=== PATIENT | female | born 1970 | race Caucasian/White ===

== ENCOUNTER 2019-07-23 12:29 | Emergency (ER) | payer BC, SELFPAY ==
[2019-07-23 12:30] VITALS: BP 134/87; PULSE 89; RESP 17; TEMP 36.6; O2SAT 97; BMI 31.6
--- NOTE | 2019-07-23 12:45 | EKG12_ITS ---
Test Reason : DIZZINESS Blood Pressure : / mmHG Vent. Rate : 076 BPM Atrial Rate : 076 BPM P-R Int : 148 ms QRS Dur : 082 ms QT Int : 386 ms P-R-T Axes : 047 020 056 degrees QTc Int : 434 ms Normal sinus rhythm Normal ECG Confirmed by MICHELET PERALTA ([id number]), newspaper photo editor BLAYNE FRIAS ([id number]) on 07/29/2019 2:25:03 PM Referred By: JORDYN Confirmed By:MICHELET PERALTA
--- NOTE | 2019-07-23 12:45 | CT_ITS ---
STUDY: CT BRAIN WITHOUT CONTRAST REASON FOR EXAM: Female, 49 years old. Vertigo. RADIATION DOSAGE (If Supplied By Facility): CTDIvol = ( 44.99 ) mGy, DLP = ( 796.11 ) mGycm TECHNIQUE: Transaxial CT imaging of the brain was performed without administration of intravenous contrast material. Individualized dose optimization techniques were used for this CT. COMPARISON: No relevant priors. FINDINGS: Normal soft tissue structures. Normal calvarium. Normal size ventricles and extra-axial spaces for the patient's age. Normal white matter tracts of the cerebral hemispheres. Normal basal ganglia and thalami. Normal brainstem. Normal cerebellum. There is no intracranial hemorrhage. There are no findings of an acute ischemic infarction. Normal visualized paranasal sinuses. CT/Brain/Head without Contrast IMPRESSION: Normal unenhanced CT scan of the brain. Electronically Signed: Anthony Ruiz, at 13:40 EDT , Service support ,
--- NOTE | 2019-07-23 13:15 | RAD_ITS ---
STUDY: X-RAY CHEST REASON FOR EXAM: Female, 49 years old. Vertigo. TECHNIQUE: Single AP portable view of the chest. COMPARISON: None. FINDINGS: EKG electrodes are seen. The lungs are clear and expanded. Scattered calcified granulomas. There is no demonstrated pleural abnormality. Normal size heart. Normal mediastinum and josh. Normal visualized pulmonary arteries. Normal visualized aortic arch and descending thoracic aorta. Normal visualized thoracic spine. Normal visualized ribs, clavicles, and shoulders. There is no demonstrated abnormality of the visualized soft tissue structures of the upper abdomen. RAD/Chest 1 View IMPRESSION: Normal x-ray examination of the chest. Electronically Signed: Anthony Ruiz, at 13:39 EDT , Service support ,
[2019-07-23 13:18] LABS: Absolute Lymphocyte Count 2.07 X10^3/uL (0.83-4.51); Absolute Neutrophil Count 4.1 X10^3/uL (2.0-7.7); Basophil# 0.04 X10^3/uL; Basophil% 0.6 % (0-1); Eosinophil# 0.14 X10^3/uL; Eosinophils% 2.1 % (0-5); Hematocrit 38.4 % (37-47); Hemoglobin 12.4 g/dL (12.0-15.0); Lymphocyte # 2.07 X10^3/ul (4.0); Lymphocyte % 31.3 % (19-41); Mean Corp Hgb Conc 32.3 g/dL (32-36); Mean Corpuscular Hgb 27.9 pg (27.0-32.0); Mean Corpuscular Volume 86.5 fL (81-99); Mean Platelet Vol. 10.3 fl (6.2-12.0); Monocyte# 0.31 X10^3/uL; Monocyte% 4.7 % (0-10); NRBC Flagged by Analyzer 0 % (0-5); Neutrophil # 4.05 X10^3/uL (2.7-7.7); Neutrophil % 61.1 % (47-70); Platelet Count 238 K/mm3 (150-450); RBC Distribution Width CV 13.5 % (11.6-14.6); RBC Distribution Width SD 42.7 fl (35.1-43.9); Red Blood Count 4.44 M/mm3 (4.2-5.4); White Blood Count 6.6 K/mm3 (4.4-11.0)
--- NOTE | 2019-07-23 13:21 | NURSING ---
PER UENICE, LAB, CHEMISTRIES HEMOLIZED
--- NOTE | 2019-07-23 13:25 | ED.RN ---
Verbal orders received from Dr Fermin to cancel the NIH, dysphagia and finger stick glucose.
[2019-07-23] MEDS: LORazepam 2 MG/ML Syringe 0.5 MG IV (13:29)
[2019-07-23 13:30] LABS: Anion Gap 9 (5-15); BUN 10 mg/dL (7-18); BUN/Creat Ratio 15.1 RATIO (10-20); Calcium,Total 8.7 mg/dL (8.5-10.1); Chloride 105 mmol/L (98-107); Creatinine, Serum 0.66 mg/dL (0.55-1.02); EST Glomerular Filtration Rate 100 mL/min (>60); Est Glom Filt Rate - Afr Amer 121 mL/min (>60); Estimated Creatinine Clearance 83.42 ml/min; Glucose 98 mg/dL (74-106); Potassium 3.9 mmol/L (3.5-5.1); Sodium Level 139 mmol/L (136-145)
--- NOTE | 2019-07-23 13:52 | NURSING ---
PER GUDELIA, IN LAB, BLUE WAS HEMOLIZED
--- NOTE | 2019-07-23 13:58 | CT_ITS ---
STUDY: CTA HEAD AND NECK WITH CONTRAST REASON FOR EXAM: Female, 49 years old. Dizziness. RADIATION DOSAGE (If Supplied By Facility): CTDIvol = ( 19.88 ) mGy, DLP = ( 675.17 ) mGycm TECHNIQUE: CT angiography was performed with a multi-detector CT scanner. Data acquisition was obtained from the skull base through the vertex following intravenous administration of 100 IV Isovue 370. MIP images were reconstructed from the axial data set. Post-processing of the angiographic images was performed, with multiplanar reformation and 3D reconstruction. Individualized dose optimization techniques were used for this CT. COMPARISON: No relevant priors. FINDINGS: Normal bilateral petrous carotid arteries. Normal right cavernous carotid artery with a normal supraclinoid bifurcation. Normal left cavernous carotid artery with a normal supraclinoid bifurcation. Normal right A1 segments of the anterior cerebral artery. Normal left A1 segments of the anterior cerebral artery. Normal intact anterior communicating artery (ACOM). Normal bilateral A2 segments of the anterior cerebral arteries. Normal right M1 and M2 segments of the middle cerebral arteries, with a normal M1 bifurcation. Normal left M1 and M2 segments of the middle cerebral arteries, with a normal M1 bifurcation. Normal right posterior communicating artery (PCOM). Normal left posterior communicating artery (PCOM). Normal bilateral vertebral arteries. Normal basilar artery with a normal basilar bifurcation. The visualized bilateral superior cerebellar (SCA) arteries are normal. Normal bilateral P1, P2 and visualized P3 segments of the posterior cerebral arteries. There is no demonstrated aneurysm of the [place]. There is no demonstrated abnormality of the visualized brain. AORTIC ARCH: Normal visualized aortic arch. Normal origins of the brachiocephalic, left common carotid, and left subclavian arteries. RIGHT CAROTID ARTERIES: Normal right common carotid artery (CCA). Normal right common carotid bulb. Normal origin of the right internal carotid (ICA) artery without a hemodynamically significant stenosis. Normal visualized cervical portion of the right internal carotid artery. Normal origin of the right external carotid artery (ECA). LEFT CAROTID ARTERIES: Normal left common carotid artery (CCA). Normal left common carotid bulb. Normal origin of the left internal carotid (ICA) artery without a hemodynamically significant stenosis. Normal visualized cervical portion of the left internal carotid artery. Normal origin of the left external carotid artery (ECA). VERTEBRAL ARTERIES: Normal bilateral vertebral arteries. CT/CTA Head AND Neck W/ Contrast IMPRESSION: Normal CTA Head and neck with contrast. Electronically Signed: Anthony Ruiz, at 15:33 EDT , Service support ,
[2019-07-23] MEDS: proCHLORPERazine 10 MG/2 ML Vial IV (14:15)
[2019-07-23] MEDS: DiphenhydrAMINE 50 MG/ML Syringe 25 MG IV (14:15)
[2019-07-23 14:29] VITALS: BP 122/93; PULSE 79; RESP 18; O2SAT 96
[2019-07-23 14:34] LABS: Prothrombin Time (Protime)PT. 12.8 SECONDS (11.7-14.9)
[2019-07-23 14:35] LABS: Partial Thromboplast Time 29.7 Seconds (24.1-36.2)
--- NOTE | 2019-07-23 15:49 | ED.VISSUMM ---
- ER Visit Summary Date of Service: 07/23/19 Chief Complaint: Dizziness History of Present Illness: The patient is a 49 F with dizziness that started suddenly today around 8 AM at work. Nothing seems to provoke it. Nothing seemed to make it worse. Better with laying down and closing her eyes. Associated with some nausea and a frontal headache. She was also diaphoretic. No history of this. History of hyperlipidemia. Denies smoking. Denies any other neurologic symptoms. Denies trauma. Physical Examination: Afebrile and vital signs unremarkable. HEENT exam unremarkable. NIH stroke scale is 0. Heart regular. Lungs clear. Skin appears normal. Test Results: EKG sinus rhythm rate of 76. Labs normal. Chest x-ray and CT brain normal. Emergency Department Course and Treatment: Patient has symptoms of peripheral vertigo. Given her headache, I did obtain imaging and labs. These were unremarkable. She was treated with Ativan while awaiting results. On reevaluation, she had no improvement. CTA of the head and neck was performed. This was negative. She was treated with Compazine and Benadryl while awaiting those results. On initial reevaluation, her symptoms have resolved. She is resting comfortably. No new or worsening issues. I believe she is appropriate for outpatient care. I advised that we have not completely ruled out stroke. She was educated about stroke and will return if any issues arise. She requested discharge after this discussion. Treatment Plan: As above Disposition: Discharge Impression: 1. Vertigo This note was generated with [employer] dictation software. It may contain incorrect words, spelling, and punctuation that were not noted in review of the chart prior to signing ED Disposition - Plan for ED Patient: Referrals: Rebekah Pastrana MD [Primary Care Provider] -
--- NOTE | 2019-07-23 15:51 | ED.DEP ---
ED Disposition - Plan for ED Patient: Instructions: VERTIGO, Unspecified Prescriptions: Meclizine HCl [Antivert] 25 mg PO 4X/DAY PRN PRN #20 tab PRN Reason: Dizziness Prescription Printed Referrals: Rebekah Pastrana MD [Primary Care Provider] -
[2019-07-23 16:00] VITALS: BP 122/89; PULSE 84; RESP 16; O2SAT 98
[2019-07-23 16:01] VITALS: BP 122/89; PULSE 84; RESP 16; O2SAT 98
== END 2019-07-23 16:05 | disposition home or self-care (01) ==
LOC: ED 13:01
PROVIDERS: Emergency Provider Emergency Medicine; Family Provider Internal Medicine; PCP Internal Medicine
DX: R42 Dizziness and giddiness (principal); E78.5 Hyperlipidemia, unspecified; Z79.899 Other long term (current) drug therapy
CPT/HCPCS: 70450; 70496; 70498; 71045; 80048; 84484; 85025; 85610; 85730; 93005; 96374; 96375; 99285; Q9967; A4216

== ENCOUNTER 2020-03-18 12:50 | Emergency (ER) | payer OTHER, SELFPAY ==
[2020-03-18 12:51] VITALS: BP 128/79; PULSE 111; RESP 17; TEMP 36.5; O2SAT 96; BMI 31.6
[2020-03-18 13:11] VITALS: BP 136/83; PULSE 99; RESP 15; O2SAT 95
[2020-03-18] MEDS: 0.9% Normal Saline 1,000 ML 1000 ML IV (13:16)
[2020-03-18 13:22] LABS: Absolute Lymphocyte Count 2.28 X10^3/uL (0.83-4.51); Absolute Neutrophil Count 3.9 X10^3/uL (2.0-7.7); Basophil# 0.03 X10^3/uL; Basophil% 0.4 % (0-1); Eosinophil# 0.13 X10^3/uL; Eosinophils% 1.9 % (0-5); Hematocrit 38.7 % (37-47); Hemoglobin 12.6 g/dL (12.0-15.0); Lymphocyte # 2.28 X10^3/ul (4.0); Lymphocyte % 34.1 % (19-41); Mean Corp Hgb Conc 32.6 g/dL (32-36); Mean Corpuscular Hgb 28.2 pg (27.0-32.0); Mean Corpuscular Volume 86.6 fL (81-99); Mean Platelet Vol. 10.3 fl (6.2-12.0); Monocyte# 0.29 X10^3/uL; Monocyte% 4.3 % (0-10); NRBC Flagged by Analyzer 0 % (0-5); Neutrophil # 3.93 X10^3/uL (2.7-7.7); Neutrophil % 58.9 % (47-70); Platelet Count 247 K/mm3 (150-450); RBC Distribution Width CV 13.2 % (11.6-14.6); RBC Distribution Width SD 41.8 fl (35.1-43.9); Red Blood Count 4.47 M/mm3 (4.2-5.4); White Blood Count 6.7 K/mm3 (4.4-11.0)
[2020-03-18 13:30] VITALS: BP 116/71; BP 122/85; BP 123/82; PULSE 86; PULSE 93; PULSE 96; RESP 16; O2SAT 98
[2020-03-18 13:31] LABS: Prothrombin Time (Protime)PT. 12.5 SECONDS (11.7-14.9)
[2020-03-18 13:32] LABS: Partial Thromboplast Time 29.5 Seconds (24.1-36.2)
[2020-03-18 13:37] LABS: Anion Gap 12 (5-15); BUN 13 mg/dL (7-18); BUN/Creat Ratio 14.3 RATIO (10-20); Calcium,Total 8.7 mg/dL (8.5-10.1); Chloride 103 mmol/L (98-107); Creatinine, Serum 0.91 mg/dL (0.55-1.02); EST Glomerular Filtration Rate 69 mL/min (>60); Est Glom Filt Rate - Afr Amer 84 mL/min (>60); Glucose 118 mg/dL (74-106); Potassium 3.4 mmol/L (3.5-5.1); Sodium Level 138 mmol/L (136-145)
[2020-03-18] MEDS: Ondansetron ODT 4 MG Tablet PO (13:41)
--- NOTE | 2020-03-18 14:45 | CT_ITS ---
STUDY: CT ABDOMEN AND PELVIS WITH CONTRAST REASON FOR EXAM: Female, 49 years old. DIVERTICULITIS AND GI BLEED. PRIOR HYSTERECTOMY, TUBIAL LIGATION AND CHOLECYSTECTOMY RADIATION DOSAGE (If Supplied By Facility): CTDIvol = ( 14.37 ) mGy, DLP = ( 809.51 ) mGycm TECHNIQUE: Transaxial images were obtained from the dome of the diaphragm to the symphysis pubis without oral contrast. Oral and amp; IV Gastrografin and amp; 100mL Isovue-300 was administered. Sagittal and coronal images were reconstructed. Individualized dose optimization techniques were used for this CT. COMPARISON: None. FINDINGS: Several tiny calcified benign granulomas are present in the bilateral lower lobes. Normal liver. No intrahepatic biliary duct dilatation or liver mass. There is non-visualization of the gallbladder, compatible with a prior cholecystectomy. Normal spleen. Normal pancreas. Normal bilateral adrenal glands. Normal right kidney. Normal left kidney. Small simple cysts of the left kidney noted and require no further evaluation. No hydronephrosis or renal masses. No large stones. Normal visualized stomach. Normal small intestine. Normal colon. No bowel dilatation or obstruction. No free air or free fluid. The appendix is visualized and appears normal. Normal abdominal aorta. Normal inferior vena cava. Normal retroperitoneum. Normal urinary bladder. There is absence of the uterus consistent with a prior hysterectomy. Normal abdominal wall. There are diffuse degenerative changes of the visualized lumbar spine. Benign fatty hemangioma seen in the lower thoracic vertebra. CT/Abdomen/Pelvis WITH Contrast IMPRESSION: No demonstrated acute or significant process of the abdomen and pelvis. Electronically Signed: Carlo Giraldo MD at 17:09 EDT , Service support ,
[2020-03-18 15:00] VITALS: BP 119/77; PULSE 93; RESP 20; O2SAT 100
--- NOTE | 2020-03-18 16:25 | ED.DCSUM_ITS ---
- ER Visit Summary Date of Service: 03/18/20 Chief Complaint: Blood in stool History of Present Illness: The patient is a [address] Pastrana and has had a colonoscopy by Dr. Ham in the past. She reports that at noon today she went and had a bowel movement that was formed and there was some bright red blood. Since that time she has had 2 loose stools with bright red blood. She first that she is cramping suprapubic pain was 5 to 10 hours and is 2 out of 10 currently. She reports that it is worsened by nothing. Is relieved by having a bowel movement. She had nausea without vomiting. She denies any dysuria or frequency. Patient denies sick contacts. Has not been camping out of the country. No possible bad food exposure. Does not drink well water. No recent antibiotic use. Patient reports he is never had anything like this before. No family history of Crohn's or ulcerative colitis. No fever or chills. Physical Examination: Vitals: Stable. Afebrile. General: Well-nourished and well-developed. Head: Normocephalic atraumatic. Neck: Supple, no lymphadenopathy. No JVD. Nontender. Cardiovascular: Regular rate and rhythm. No murmurs. Respiratory: No respiratory distress. Clear to auscultation bilaterally. Abdominal: Soft, nontender, nondistended, normal bowel sounds. No guarding, rebound, or peritoneal signs. Rectal: External skin tags with a small anal fissure at 6:00. There is no active bleeding. There are no external hemorrhoids. Back: Nontender. Extremities: Nontender, no edema. Skin: Normal color, no rash. Neurologic: Alert and oriented ?3. Cranial nerves II through XII are intact. Normal strength and sensation. Psych: Normal affect. Test Results: CBC is normal. Chem-7 shows potassium 3.4 glucose 118. Coags are normal. Clinical Impression(s) from Imaging Studies Abdomen/Pelvis CT 03/18/20 14:45 IMPRESSION: No demonstrated acute or significant process of the abdomen and pelvis. Electronically Signed: Carlo Giraldo MD at 17:09 EDT , Service support , Emergency Department Course and Treatment: Patient has had 2 bowel movements with bright red blood while here. She was discussed with Dr. Trey Lucas who asked that a CT with p.o. and IV contrast be obtained. Treatment Plan: Clinically the patient is stable. She feels well and would like to go home. I spoke with Dr. Trey Lucas again who has reviewed the CT and does not see a cause for the bleeding. He asked that the patient be made n.p.o. after midnight and call the office in the morning at 7. States that he will see her likely at 8:00 in the morning in case that procedure needs to be performed. I discussed this with the patient and she is happy with this plan. Disposition: To home in improved and stable condition. Impression: 1. Stable lower GI bleed. This note was generated with [employer] dictation software. It may contain incorrect words, spelling, and punctuation that were not noted in review of the chart prior to signing ED Disposition - Plan for ED Patient: Instructions: ED Hematochezia Stable Referrals: Rebekah Pastrana MD [Primary Care Provider] - Trey Lucas MD [STAFF PHYSICIAN] - 03/19/20 Additional Instructions: Dr. Trey Lucas asked that you call at 7 AM tomorrow to make an appointment to be seen as early in the morning as you can. He does not want you to eat or drink anything after midnight in case a procedure is needed.
== END 2020-03-18 17:33 | disposition home or self-care (01) ==
LOC: ED 13:33
PROVIDERS: Emergency Provider Emergency Medicine; PCP Internal Medicine
DX: K92.2 Gastrointestinal hemorrhage, unspecified (principal)
CPT/HCPCS: 74177; 80048; 85025; 85610; 85730; 96361; 96374; 99285; J7030; Q9967; A4216

== ENCOUNTER 2020-03-24 07:41 | Day surgery (SDC) | payer OTHER, SELFPAY ==
[2020-03-19 10:25] VITALS: BMI 31.5
--- NOTE | 2020-03-19 11:03 | HP_ITS ---
Intake Vital Signs 03/19/20 Height 5 ft 3 in 03/19/20 Weight: 178 lb 03/19/20 BP 110/77 03/19/20 Blood Pressure Location Rt brachial 03/19/20 Position Sitting 03/19/20 Respiration 18 03/19/20 Pulse 82 03/19/20 Pulse Source Monitor 03/19/20 Temp 97.9 F 03/19/20 Temp Source Oral 03/19/20 Pulse Oximetry (%) 98 03/19/20 Oxygen Delivery Method room air 03/19/20 BMI 31.6 Intake Visit Reasons: rectal bleeding Allergies Penicillins Allergy (Verified 03/19/20 10:27) Hives Medications Ergocalciferol [Vitamin D] 50,000 unit PO ALBERT 02/11/14 [History Confirmed 03/19/20] Acetaminophen [Tylenol Extra Strength] 1,000 mg PO Q4H PRN PRN 07/23/19 [History Confirmed 03/19/20] Meclizine HCl [Antivert] 25 mg PO 4X/DAY PRN PRN #20 tab 07/23/19 [Rx Confirmed 03/19/20] Rosuvastatin Calcium 20 mg PO QHS 07/23/19 [History Confirmed 03/19/20] PFSH Medical History (Updated 03/19/20 @ 11:[address] Trey Lucas MD) Collagenous colitis (Acute) Anal fissure (Acute) Rectal hemorrhage (Acute) Acid reflux (Acute) Diarrhea (Acute) Nausea (Acute) Rectal bleeding (Acute) Sleep apnea (Acute) Surgical History (Updated 03/19/20 @ 10:24 by Kasandra Peña) History of hysterectomy (Acute) History of laparoscopic cholecystectomy (Acute) Family History (Updated 03/19/20 @ 10:25 by Kasandra Peña) Father Cancer Pancreatic cancer Mother Diabetes CVA (cerebral vascular accident) Social History (Updated 03/19/20 @ 11:[address] Trey Lucas MD) Smoking Status: Never smoker HPI HPI HPI: TRUNG PEÑA, is a 49 F who presents to the office today for HPI HPI Surgical H&P: Yes HPI: TRUNG PEÑA, is a 49 F who presents to the office today for surgical consultation regarding rectal bleeding. I was contacted by from the emergency room last night. The patient had presented with bright red rectal bleeding. She had had several episodes but by the time her ER evaluation had completed her rectal bleeding was slowing. She has had a known chronic anal fissure. This did not seem to be the site of her rectal bleeding and Dr. Leon referred the patient for surgical consultation and I will send a copy of my recommendations back. The patient's primary care physician is Dr. Pastrana. The patient most recent colonoscopy was by Dr. Maykel Barajas 2006. Random colonic biopsies did demonstrate collagenous colitis. The patient has not been on any medications. Over the years she has had postprandial urgent bowel movements particularly after eating out. She does not really describe liquidy stool except she will have a urgent soft stool which then can evolve into more of a diarrhea. Over the years she does not describe bright red blood per rectum or melena. The bright red rectal bleeding was a recent phenomena occurring yesterday. There is no family history of colon polyps or colon cancer. Her white blood cell count was 6.7 with a hemoglobin 12.6 hematocrit 38.7 platelet count 247,000. BUN is [address] scan of the abdomen pelvis was obtained at my request. This was performed looking for possible acute diverticulitis. No acute changes of the colon were identified or of the abdomen. The patient states that today she feels improved. She has not had any rectal bleeding or anal pain today [facility] [address] [place] [address] Abdomen/Pelvis WITH Contrast MR#: [id number] Name: TRUNG PEÑA [facility] #:[id number] : 1970F 49 From: Carlo Giraldo MD PCP:Rebekah Pastrana MD Status:[facility] ER Study:Abdomen/Pelvis WITH Contrast Date of Exam:03/18/20 Exam#[id number] Ordering Dr: Jerrell Leon MD STUDY: CT ABDOMEN AND PELVIS WITH CONTRAST REASON FOR EXAM: Female, 49 years old. DIVERTICULITIS AND GI BLEED. PRIOR HYSTERECTOMY, TUBIAL LIGATION AND CHOLECYSTECTOMY RADIATION DOSAGE (If Supplied By Facility): CTDIvol = ( 14.37 ) mGy, DLP = ( 809.51 ) mGycm TECHNIQUE: Transaxial images were obtained from the dome of the diaphragm to the symphysis pubis without oral contrast. Oral and amp; IV Gastrografin and amp; 100mL Isovue-300 was administered. Sagittal and coronal images were reconstructed. Individualized dose optimization techniques were used for this CT. COMPARISON: None. FINDINGS: Several tiny calcified benign granulomas are present in the bilateral lower lobes. Normal liver. No intrahepatic biliary duct dilatation or liver mass. There is non-visualization of the gallbladder, compatible with a prior cholecystectomy. Normal spleen. Normal pancreas. Normal bilateral adrenal glands. Normal right kidney. Normal left kidney. Small simple cysts of the left kidney noted and require no further evaluation. No hydronephrosis or renal masses. No large stones. Normal visualized stomach. Normal small intestine. Normal colon. No bowel dilatation or obstruction. No free air or free fluid. The appendix is visualized and appears normal. Normal abdominal aorta. Normal inferior vena cava. Normal retroperitoneum. Normal urinary bladder. There is absence of the uterus consistent with a prior hysterectomy. Normal abdominal wall. There are diffuse degenerative changes of the visualized lumbar spine. Benign fatty hemangioma seen in the lower thoracic vertebra. CT/Abdomen/Pelvis WITH Contrast IMPRESSION: No demonstrated acute or significant process of the abdomen and pelvis. Electronically Signed: Carlo Giraldo MD at 17:09 EDT , Service support , CC: Rebekah Pastrana MD; Sanjiv Leon MD ~ Teacher [employer]: Signed Exam Const General: cooperative, healthy appearing, comfortable, no acute distress Nutritional Appearance: obese Orientation: alert, awake HENMT Head: normal to inspection Eyes General: appearance normal, both eyes and all related structures Neck Neck: normal visual inspection Resp Effort & Inspection: normal respiratory effort Auscultation: clear to auscultation bilaterally Cardio Rate: regular rate Rhythm: regular rhythm GI Inspection: obesity Palpation: soft, no hepatosplenomegaly Skin General: no rashes or lesions noted Neuro Cognition: normal cognition Extrem General: no calf tenderness Psych Affect: normal affect Assessment & Plan Problems 1. Rectal hemorrhage K62.5 2. Anal fissure K60.2 3. Collagenous colitis K52.831 Plan I recommended the patient a colonoscopy with possible biopsy or polypectomy as indicated. Very careful inspection for potential etiologies of rectal bleeding will be pursued. Careful inspection of the anal fissure. I anticipate random colonic biopsies to evaluate regarding active collagenous colitis. The patient has not been on medication she may require medical treatment. She has had an opportunity to ask and have questions answered. We will schedule and expedite her care. I appreciate the opportunity of assisting with her surgical management. Cc: Dr. Sanjiv Leon and Dr.Chitra Victoriano Lucas M.D., F.A.C.S. Coding Level of Care Code 71381 Diagnoses Rectal hemorrhage K62.5 Anal fissure K60.2 Collagenous colitis K52.831 03/19/20 1112 <Electronically signed by Trey soto MD> Date _ Trey Lucas MD
[2020-03-24 08:09] VITALS: BP 116/78; PULSE 85; RESP 16; TEMP 36.6; O2SAT 95; BMI 33.5
[2020-03-24] MEDS: Lactated Ringers 1,000 ML 100 ML IV (08:13)
--- NOTE | 2020-03-24 08:29 | PCM.HP.BLA ---
Problem List (1) Rectal hemorrhage Status: Acute History and Physical Date of Admission: 03/24/20 Intake Visit Reasons: rectal bleeding Allergies Penicillins Allergy (Verified 03/19/20 10:27) Hives Medications Ergocalciferol [Vitamin D] 50,000 unit PO ALBERT 02/11/14 [History Confirmed 03/19/20] Acetaminophen [Tylenol Extra Strength] 1,000 mg PO Q4H PRN PRN 07/23/19 [History Confirmed 03/19/20] Meclizine HCl [Antivert] 25 mg PO 4X/DAY PRN PRN #20 tab 07/23/19 [Rx Confirmed 03/19/20] Rosuvastatin Calcium 20 mg PO QHS 07/23/19 [History Confirmed 03/19/20] PFS Medical History (Updated 03/19/20 @ 11:[address] Trey Lucas MD) Collagenous colitis (Acute) Anal fissure (Acute) Rectal hemorrhage (Acute) Acid reflux (Acute) Diarrhea (Acute) Nausea (Acute) Rectal bleeding (Acute) Sleep apnea (Acute) Surgical History (Updated 03/19/20 @ 10:24 by Kasandra Peña) History of hysterectomy (Acute) History of laparoscopic cholecystectomy (Acute) Family History (Updated 03/19/20 @ 10:25 by Kasandra Peña) Father Cancer Pancreatic cancer Mother Diabetes CVA (cerebral vascular accident) Social History (Updated 03/19/20 @ 11:[address] Trey Lucas MD) Smoking Status: Never smoker HPI HPI HPI: TRUNG PEÑA, is a 49 F who presents to the office today for HPI HPI Surgical H&P: Yes HPI: TRUNG PEÑA, is a 49 F who presents to the office today for surgical consultation regarding rectal bleeding. I was contacted by from the emergency room last night. The patient had presented with bright red rectal bleeding. She had had several episodes but by the time her ER evaluation had completed her rectal bleeding was slowing. She has had a known chronic anal fissure. This did not seem to be the site of her rectal bleeding and Dr. Leon referred the patient for surgical consultation and I will send a copy of my recommendations back. The patient's primary care physician is Dr. Pastrana. The patient most recent colonoscopy was by Dr. Maykel Barajas 2006. Random colonic biopsies did demonstrate collagenous colitis. The patient has not been on any medications. Over the years she has had postprandial urgent bowel movements particularly after eating out. She does not really describe liquidy stool except she will have a urgent soft stool which then can evolve into more of a diarrhea. Over the years she does not describe bright red blood per rectum or melena. The bright red rectal bleeding was a recent phenomena occurring yesterday. There is no family history of colon polyps or colon cancer. Her white blood cell count was 6.7 with a hemoglobin 12.6 hematocrit 38.7 platelet count 247,000. BUN is [address] scan of the abdomen pelvis was obtained at my request. This was performed looking for possible acute diverticulitis. No acute changes of the colon were identified or of the abdomen. The patient states that today she feels improved. She has not had any rectal bleeding or anal pain today [facility] Imaging Services [address] [place] [address] Abdomen/Pelvis WITH Contrast MR#: [id number] Name: TRUNG PEÑA [facility] #:[id number] : 1970F 49 From: Carlo Giraldo MD PCP:Rebekah Pastrana MD Status:[facility] ER Study:Abdomen/Pelvis WITH Contrast Date of Exam:03/18/20 Exam#[id number] Ordering Dr: Jerrell Leon MD STUDY: CT ABDOMEN AND PELVIS WITH CONTRAST REASON FOR EXAM: Female, 49 years old. DIVERTICULITIS AND GI BLEED. PRIOR HYSTERECTOMY, TUBIAL LIGATION AND CHOLECYSTECTOMY RADIATION DOSAGE (If Supplied By Facility): CTDIvol = ( 14.37 ) mGy, DLP = ( 809.51 ) mGycm TECHNIQUE: Transaxial images were obtained from the dome of the diaphragm to the symphysis pubis without oral contrast. Oral and amp; IV Gastrografin and amp; 100mL Isovue-300 was administered. Sagittal and coronal images were reconstructed. Individualized dose optimization techniques were used for this CT. COMPARISON: None. FINDINGS: Several tiny calcified benign granulomas are present in the bilateral lower lobes. Normal liver. No intrahepatic biliary duct dilatation or liver mass. There is non-visualization of the gallbladder, compatible with a prior cholecystectomy. Normal spleen. Normal pancreas. Normal bilateral adrenal glands. Normal right kidney. Normal left kidney. Small simple cysts of the left kidney noted and require no further evaluation. No hydronephrosis or renal masses. No large stones. Normal visualized stomach. Normal small intestine. Normal colon. No bowel dilatation or obstruction. No free air or free fluid. The appendix is visualized and appears normal. Normal abdominal aorta. Normal inferior vena cava. Normal retroperitoneum. Normal urinary bladder. There is absence of the uterus consistent with a prior hysterectomy. Normal abdominal wall. There are diffuse degenerative changes of the visualized lumbar spine. Benign fatty hemangioma seen in the lower thoracic vertebra. CT/Abdomen/Pelvis WITH Contrast IMPRESSION: No demonstrated acute or significant process of the abdomen and pelvis. Electronically Signed: Carlo Giraldo MD at 17:09 EDT , Service support , CC: Rebekah Pastrana MD; Sanjiv Leon MD ~ Cover Cutter: Signed Exam Const General: cooperative, healthy appearing, comfortable, no acute distress Nutritional Appearance: obese Orientation: alert, awake HENWA Head: normal to inspection Eyes General: appearance normal, both eyes and all related structures Neck Neck: normal visual inspection Resp Effort & Inspection: normal respiratory effort Auscultation: clear to auscultation bilaterally Cardio Rate: regular rate Rhythm: regular rhythm GI Inspection: obesity Palpation: soft, no hepatosplenomegaly Skin General: no rashes or lesions noted Neuro Cognition: normal cognition Extrem General: no calf tenderness Psych Affect: normal affect Assessment & Plan Problems 1. Rectal hemorrhage K62.5 2. Anal fissure K60.2 3. Collagenous colitis K52.831 Plan I recommended the patient a colonoscopy with possible biopsy or polypectomy as indicated. Very careful inspection for potential etiologies of rectal bleeding will be pursued. Careful inspection of the anal fissure. I anticipate random colonic biopsies to evaluate regarding active collagenous colitis. The patient has not been on medication she may require medical treatment. She has had an opportunity to ask and have questions answered. We will schedule and expedite her care. I appreciate the opportunity of assisting with her surgical management. Cc: Dr. Sanjiv Leon and Dr.Chitra Victoriano Lucas M.D., F.A.C.S. Coding Level of Care Code 94958 Diagnoses Rectal hemorrhage K62.5 Anal fissure K60.2 Collagenous colitis K52.831 03/19/20 1112 <Electronically signed by Trey Lucas MD> Date Trey Lucas MD I have re-examined the patient. There are no clinical changes since date of exam.
--- NOTE | 2020-03-24 09:10 | COLBX_PTH ---
PATIENT: TRUNG PEÑA LOC: [facility] U#:[id number] AGE/SX: 49/F ROOM: RE03/24/[address]: Dr. Trey Lucas MD : 1970 BED: DIS: 03/24/2020 SPEC #: [id number] RECD: 03/24/20 12:49 STATUS: [facility] #: [id number] CALLIE: 03/24/20 09:[address]: Trey Lucas DEPT: SURGICAL PATHOLOGY RECD BY: Jamaal Lucero ENTERED: 03/25/20 09:34 SP TYPE: COLON BX OTHR DR: Dr. Rebekah Pastrana MD Tissues: A - COLON BIOPSY B - Sigmoid colon biopsy C - Sigmoid colon biopsy Procedures: Surgery Specimen Level IV HEADER OPERATION: Colonoscopy (MAC) PRE-OP DIAGNOSIS: Rectal hemorrhage TISSUE SUBMITTED: A - Random colonic biopsy, B - Proximal sigmoid polyp biopsy, C - Mid sigmoid polyp biopsy MICROSCOPIC DIAGNOSIS A. Colon, random biopsy: No pathologic change. B. Proximal sigmoid colon polyp, biopsy: Tubular adenoma. C. Mid sigmoid colon polyp, biopsy: Tubular adenoma. AM:dennise 03/26/20 MICROSCOPIC DESCRIPTION Slides are reviewed. GROSS DESCRIPTION A - Received in fixative is one container labeled with the patient's name and designated random colon biopsy. The specimen consists of multiple irregular fragments of light cruz soft tissue that in aggregate measure 0.7 x 0.5 x 0.1 cm. The specimen is totally submitted in one cassette. B - Received in fixative is one container labeled with the patient's name and designated proximal sigmoid colon polyp. The specimen consists of one irregular fragment of light cruz soft tissue that measures 0.5 x 0.3 x 0.1 cm. The specimen is totally submitted in one cassette. C - Received in fixative is one container labeled with the patient's name and designated mid sigmoid colon polyp. The specimen consists of two irregular fragments of light cruz soft tissue that in aggregate measure 0.6 x 0.3 x 0.1 cm. The specimen is totally submitted in one cassette. / AM:dennise 03/25/20 TC:5 CPT: 82022 x3
[2020-03-24 09:40] VITALS: BP 112/88; BP 116/78; PULSE 81; RESP 16; TEMP 36.7; O2SAT 100
[2020-03-24 09:45] VITALS: BP 108/81; BP 116/78; PULSE 79; RESP 18; O2SAT 99
--- NOTE | 2020-03-24 09:47 | OP.CCLET_ITS ---
03/24/2020 Rebekah Pastrana [address] [id number] Re : Colonoscopy procedure for Sophie Dempseykins Dear Dr. Pastrana This procedure was performed on Tuesday, March 24, 2020. My impressions and recommendations are as follows: Impressions : - Non-thrombosed external hemorrhoids, non-thrombosed internal hemorrhoids and internal hemorrhoids that prolapse with straining, but require manual replacement into the anal canal (Grade III) found on digital rectal exam. - One 4 mm polyp in the proximal sigmoid colon, removed with a cold biopsy forceps. Resected and retrieved. - One 5 mm polyp in the mid sigmoid colon, removed with a cold biopsy forceps. Resected and retrieved. Biopsied. - Diverticulosis in the sigmoid colon. - The examination was otherwise normal. Recommendations : - Discharge patient to home. - Resume previous diet. - Continue present medications. - Repeat colonoscopy in 5 years for surveillance based on pathology results. - Telephone my office for pathology results in 1 week Consider virtual office appt. one week to discuss hemorrhoidectomy. Rectal bleeding likely secondary to internal hemorrhoids. My findings are described in the full procedure note, which is enclosed. If I can be of further assistance, please feel free to contact me at Doctor phone number(s): Work: . Sincerely, Trey Lucas MD 03/24/2020 9:46:53 AM This report has been signed electronically.
--- NOTE | 2020-03-24 09:47 | OP.COLON_ITS ---
Patient Name: Sophie Villegas Procedure Date: 03/24/2020 9:15 AM Date of : 1970 Age: 49 Procedure: Colonoscopy Indications: Rectal bleeding Providers: Trey Lucas MD Referring MD: Trey Lucas MD Medicines: See the Anesthesia note for documentation of the administered medications Patient Profile: Last Colonoscopy: 2006. Complications: No immediate complications. Procedure: Pre-Anesthesia Assessment: - Prior to the procedure, a History and Physical was performed, and patient medications and allergies were reviewed. The patient's tolerance of previous anesthesia was also reviewed. The risks and benefits of the procedure and the sedation options and risks were discussed with the patient. All questions were answered, and informed consent was obtained. Prior Anticoagulants: The patient has taken no previous anticoagulant or antiplatelet agents. ASA Grade Assessment: II - A patient with mild systemic disease. After reviewing the risks and benefits, the patient was deemed in satisfactory condition to undergo the procedure. After I obtained informed consent, the scope was passed under direct vision. Throughout the procedure, the patient's blood pressure, pulse, and oxygen saturations were monitored continuously. The pediatric colonoscope was introduced through the anus and advanced to the cecum, identified by appendiceal orifice and ileocecal valve. The colonoscopy was performed without difficulty. The patient tolerated the procedure well. The quality of the bowel preparation was good. The ileocecal valve and the appendiceal orifice were photographed. Scope In: 9:24:07 AM Scope Withdrawal Time 0 hours 7 minutes 39 seconds Scope Out: 9:36:21 AM Total Procedure Duration Time 0 hours 12 minutes 14 seconds Findings: The digital rectal exam findings include non-thrombosed external hemorrhoids, non-thrombosed internal hemorrhoids and internal hemorrhoids that prolapse with straining, but require manual replacement into the anal canal (Grade III). A 4 mm polyp was found in the proximal sigmoid colon. The polyp was sessile. The polyp was removed with a cold biopsy forceps. Resection and retrieval were complete. A 5 mm polyp was found in the mid sigmoid colon. The polyp was sessile. The polyp was removed with a cold biopsy forceps. Resection and retrieval were complete. Biopsies for histology were taken with a cold forceps from the entire colon for evaluation of microscopic colitis. A few diverticula were found in the sigmoid colon. The exam was otherwise without abnormality. Impression: - Non-thrombosed external hemorrhoids, non-thrombosed internal hemorrhoids and internal hemorrhoids that prolapse with straining, but require manual replacement into the anal canal (Grade III) found on digital rectal exam. - One 4 mm polyp in the proximal sigmoid colon, removed with a cold biopsy forceps. Resected and retrieved. - One 5 mm polyp in the mid sigmoid colon, removed with a cold biopsy forceps. Resected and retrieved. Biopsied. - Diverticulosis in the sigmoid colon. - The examination was otherwise normal. Recommendation: - Discharge patient to home. - Resume previous diet. - Continue present medications. - Repeat colonoscopy in 5 years for surveillance based on pathology results. - Telephone my office for pathology results in 1 week Consider virtual office appt. one week to discuss hemorrhoidectomy. Rectal bleeding likely secondary to internal hemorrhoids. Procedure Code(s): --- Professional --- 02289, Colonoscopy, flexible; with biopsy, single or multiple Diagnosis Code(s): --- Professional --- K64.2, Third degree hemorrhoids K64.4, Residual hemorrhoidal skin tags D12.5, Benign neoplasm of sigmoid colon K62.5, Hemorrhage of anus and rectum K57.30, Diverticulosis of large intestine without perforation or abscess without bleeding CPT copyright 2017 [employer]. All rights reserved. The codes documented in this report are preliminary and upon waste disposal attendant review may be revised to meet current compliance requirements. Trey Lucas MD 03/24/2020 9:46:53 AM This report has been signed electronically. Number of Addenda: 0 Note Initiated On: 03/24/2020 9:15 AM
[2020-03-24 09:50] VITALS: BP 116/78; BP 120/77; PULSE 79; RESP 18; O2SAT 100
[2020-03-24 09:56] VITALS: BP 113/80; BP 116/78; PULSE 76; RESP 18; TEMP 36.8; O2SAT 99
[2020-03-24 10:14] VITALS: BP 116/78
== END 2020-03-24 10:16 | disposition home or self-care (01) ==
LOC: EN 07:42 → AC 07:43
PROVIDERS: PCP Internal Medicine; Referring Provider Surgery; Visit Provider Surgery
PROC: 0DJD8ZZ Inspection of Lower Intestinal Tract, Via Natural or Artificial Opening Endoscopic (ICD-10-PCS; CPT 45378; principal; 2020-03-24 09:05)
DX: K62.5 Hemorrhage of anus and rectum (principal); K57.30 Diverticulosis of large intestine without perforation or abscess without bleeding; D12.5 Benign neoplasm of sigmoid colon; K64.2 Third degree hemorrhoids; K64.4 Residual hemorrhoidal skin tags; G47.30 Sleep apnea, unspecified; K21.9 Gastro-esophageal reflux disease without esophagitis; K60.1 Chronic anal fissure; K52.831 Collagenous colitis; Z79.899 Other long term (current) drug therapy
CPT/HCPCS: 45380; 88305; J7120

== ENCOUNTER 2020-04-10 06:32 | Day surgery (SDC) | payer OTHER, SELFPAY ==
--- NOTE | 2020-03-19 11:03 | HP_ITS ---
Intake Vital Signs 03/19/20 Height 5 ft 3 in 03/19/20 Weight: 178 lb 03/19/20 BP 110/77 03/19/20 Blood Pressure Location Rt brachial 03/19/20 Position Sitting 03/19/20 Respiration 18 03/19/20 Pulse 82 03/19/20 Pulse Source Monitor 03/19/20 Temp 97.9 F 03/19/20 Temp Source Oral 03/19/20 Pulse Oximetry (%) 98 03/19/20 Oxygen Delivery Method room air 03/19/20 BMI 31.6 Intake Visit Reasons: rectal bleeding Allergies Penicillins Allergy (Verified 03/19/20 10:27) Hives Medications Ergocalciferol [Vitamin D] 50,000 unit PO ALBERT 02/11/14 [History Confirmed 03/19/20] Acetaminophen [Tylenol Extra Strength] 1,000 mg PO Q4H PRN PRN 07/23/19 [History Confirmed 03/19/20] Meclizine HCl [Antivert] 25 mg PO 4X/DAY PRN PRN #20 tab 07/23/19 [Rx Confirmed 03/19/20] Rosuvastatin Calcium 20 mg PO QHS 07/23/19 [History Confirmed 03/19/20] PFSH Medical History (Updated 03/19/20 @ 11:[address] Trey Lucas MD) Collagenous colitis (Acute) Anal fissure (Acute) Rectal hemorrhage (Acute) Acid reflux (Acute) Diarrhea (Acute) Nausea (Acute) Rectal bleeding (Acute) Sleep apnea (Acute) Surgical History (Updated 03/19/20 @ 10:24 by Kasandra Peña) History of hysterectomy (Acute) History of laparoscopic cholecystectomy (Acute) Family History (Updated 03/19/20 @ 10:25 by Kasandra Peña) Father Cancer Pancreatic cancer Mother Diabetes CVA (cerebral vascular accident) Social History (Updated 03/19/20 @ 11:[address] Trey Lucas MD) Smoking Status: Never smoker HPI HPI HPI: TRUNG PEÑA, is a 49 F who presents to the office today for HPI HPI Surgical H&P: Yes HPI: TRUNG PEÑA, is a 49 F who presents to the office today for surgical consultation regarding rectal bleeding. I was contacted by from the emergency room last night. The patient had presented with bright red rectal bleeding. She had had several episodes but by the time her ER evaluation had completed her rectal bleeding was slowing. She has had a known chronic anal fissure. This did not seem to be the site of her rectal bleeding and Dr. Leon referred the patient for surgical consultation and I will send a copy of my recommendations back. The patient's primary care physician is Dr. Pastrana. The patient most recent colonoscopy was by Dr. Maykel Barajas 2006. Random colonic biopsies did demonstrate collagenous colitis. The patient has not been on any medications. Over the years she has had postprandial urgent bowel movements particularly after eating out. She does not really describe liquidy stool except she will have a urgent soft stool which then can evolve into more of a diarrhea. Over the years she does not describe bright red blood per rectum or melena. The bright red rectal bleeding was a recent phenomena occurring yesterday. There is no family history of colon polyps or colon cancer. Her white blood cell count was 6.7 with a hemoglobin 12.6 hematocrit 38.7 platelet count 247,000. BUN is [address] scan of the abdomen pelvis was obtained at my request. This was performed looking for possible acute diverticulitis. No acute changes of the colon were identified or of the abdomen. The patient states that today she feels improved. She has not had any rectal bleeding or anal pain today [facility] [address] [place] [address] Abdomen/Pelvis WITH Contrast MR#: [id number] Name: TRUNG PEÑA [facility] #:[id number] : 1970F 49 From: Carlo Giraldo MD PCP:Rebekah Pastrana MD Status:[facility] ER Study:Abdomen/Pelvis WITH Contrast Date of Exam:03/18/20 Exam#[id number] Ordering Dr: Jerrell Leon MD STUDY: CT ABDOMEN AND PELVIS WITH CONTRAST REASON FOR EXAM: Female, 49 years old. DIVERTICULITIS AND GI BLEED. PRIOR HYSTERECTOMY, TUBIAL LIGATION AND CHOLECYSTECTOMY RADIATION DOSAGE (If Supplied By Facility): CTDIvol = ( 14.37 ) mGy, DLP = ( 809.51 ) mGycm TECHNIQUE: Transaxial images were obtained from the dome of the diaphragm to the symphysis pubis without oral contrast. Oral and amp; IV Gastrografin and amp; 100mL Isovue-300 was administered. Sagittal and coronal images were reconstructed. Individualized dose optimization techniques were used for this CT. COMPARISON: None. FINDINGS: Several tiny calcified benign granulomas are present in the bilateral lower lobes. Normal liver. No intrahepatic biliary duct dilatation or liver mass. There is non-visualization of the gallbladder, compatible with a prior cholecystectomy. Normal spleen. Normal pancreas. Normal bilateral adrenal glands. Normal right kidney. Normal left kidney. Small simple cysts of the left kidney noted and require no further evaluation. No hydronephrosis or renal masses. No large stones. Normal visualized stomach. Normal small intestine. Normal colon. No bowel dilatation or obstruction. No free air or free fluid. The appendix is visualized and appears normal. Normal abdominal aorta. Normal inferior vena cava. Normal retroperitoneum. Normal urinary bladder. There is absence of the uterus consistent with a prior hysterectomy. Normal abdominal wall. There are diffuse degenerative changes of the visualized lumbar spine. Benign fatty hemangioma seen in the lower thoracic vertebra. CT/Abdomen/Pelvis WITH Contrast IMPRESSION: No demonstrated acute or significant process of the abdomen and pelvis. Electronically Signed: Carlo Giraldo MD at 17:09 EDT , Service support , CC: Rebekah Pastrana MD; Sanjiv Leon MD ~ Director Government: Signed Exam Const General: cooperative, healthy appearing, comfortable, no acute distress Nutritional Appearance: obese Orientation: alert, awake HENMT Head: normal to inspection Eyes General: appearance normal, both eyes and all related structures Neck Neck: normal visual inspection Resp Effort & Inspection: normal respiratory effort Auscultation: clear to auscultation bilaterally Cardio Rate: regular rate Rhythm: regular rhythm GI Inspection: obesity Palpation: soft, no hepatosplenomegaly Skin General: no rashes or lesions noted Neuro Cognition: normal cognition Extrem General: no calf tenderness Psych Affect: normal affect Assessment & Plan Problems 1. Rectal hemorrhage K62.5 2. Anal fissure K60.2 3. Collagenous colitis K52.831 Plan I recommended the patient a colonoscopy with possible biopsy or polypectomy as indicated. Very careful inspection for potential etiologies of rectal bleeding will be pursued. Careful inspection of the anal fissure. I anticipate random colonic biopsies to evaluate regarding active collagenous colitis. The patient has not been on medication she may require medical treatment. She has had an opportunity to ask and have questions answered. We will schedule and expedite her care. I appreciate the opportunity of assisting with her surgical management. Cc: Dr. Sanjiv Leon and Dr.Chitra Victoriano Lucas M.D., F.A.C.S. Coding Level of Care Code 21159 Diagnoses Rectal hemorrhage K62.5 Anal fissure K60.2 Collagenous colitis K52.831 03/19/20 1112 <Electronically signed by Trey soto MD> Date _ Trey Lucas MD
[2020-04-03 11:49] VITALS: BMI 33.5
--- NOTE | 2020-04-09 09:37 | EKG12_ITS ---
Test Reason : PREOP Blood Pressure : / mmHG Vent. Rate : 076 BPM Atrial Rate : 076 BPM P-R Int : 138 ms QRS Dur : 078 ms QT Int : 366 ms P-R-T Axes : 047 021 053 degrees QTc Int : 411 ms Normal sinus rhythm Normal ECG Confirmed by FARRUKH CARVAJAL, MITCH ([id number]), news videotape editor BLAYNE FRIAS ([id number]) on 04/13/2020 11:34:39 AM Referred By: Trey Lucas Confirmed By:RODOLFO CHADWICK MD
[2020-04-10] VITALS (8 sets, daily range): BP systolic 98–131; BP diastolic 68–91; PULSE 75–100; RESP 16; TEMP 36.2–36.4; O2SAT 97–99; BMI 31.1
[2020-04-10] MEDS: Lactated Ringers 1,000 ML 100 ML IV ×2 (06:58→10:43)
--- NOTE | 2020-04-10 07:28 | PCM.HP.BLA ---
Problem List (1) Internal bleeding hemorrhoids Status: Acute History and Physical Date of Admission: 04/10/20 Intake Visit Reasons: rectal bleeding Allergies Penicillins Allergy (Verified 03/19/20 10:27) Hives Medications Ergocalciferol [Vitamin D] 50,000 unit PO ALBERT 02/11/14 [History Confirmed 03/19/20] Acetaminophen [Tylenol Extra Strength] 1,000 mg PO Q4H PRN PRN 07/23/19 [History Confirmed 03/19/20] Meclizine HCl [Antivert] 25 mg PO 4X/DAY PRN PRN #20 tab 07/23/19 [Rx Confirmed 03/19/20] Rosuvastatin Calcium 20 mg PO QHS 07/23/19 [History Confirmed 03/19/20] PFSH Medical History (Updated 03/19/20 @ 11:[address] Trey Lucas MD) Collagenous colitis (Acute) Anal fissure (Acute) Rectal hemorrhage (Acute) Acid reflux (Acute) Diarrhea (Acute) Nausea (Acute) Rectal bleeding (Acute) Sleep apnea (Acute) Surgical History (Updated 03/19/20 @ 10:24 by Kasandra Peña) History of hysterectomy (Acute) History of laparoscopic cholecystectomy (Acute) Family History (Updated 03/19/20 @ 10:25 by Kasandra Peña) Father Cancer Pancreatic cancer Mother Diabetes CVA (cerebral vascular accident) Social History (Updated 03/19/20 @ 11:[address] Trey Lucas MD) Smoking Status: Never smoker HPI HPI HPI: SOPHIE VILLEGAS, is a 49 F who presents to the office today for HPI HPI Surgical H&P: Yes HPI: SOPHIE VILLEGAS, is a 49 F who presents to the office today for surgical consultation regarding rectal bleeding. I was contacted by from the emergency room last night. The patient had presented with bright red rectal bleeding. She had had several episodes but by the time her ER evaluation had completed her rectal bleeding was slowing. She has had a known chronic anal fissure. This did not seem to be the site of her rectal bleeding and Dr. Leon referred the patient for surgical consultation and I will send a copy of my recommendations back. The patient's primary care physician is Dr. Pastrana. The patient most recent colonoscopy was by Dr. Maykel Barajas 2006. Random colonic biopsies did demonstrate collagenous colitis. The patient has not been on any medications. Over the years she has had postprandial urgent bowel movements particularly after eating out. She does not really describe liquidy stool except she will have a urgent soft stool which then can evolve into more of a diarrhea. Over the years she does not describe bright red blood per rectum or melena. The bright red rectal bleeding was a recent phenomena occurring yesterday. There is no family history of colon polyps or colon cancer. Her white blood cell count was 6.7 with a hemoglobin 12.6 hematocrit 38.7 platelet count 247,000. BUN is [address] scan of the abdomen pelvis was obtained at my request. This was performed looking for possible acute diverticulitis. No acute changes of the colon were identified or of the abdomen. The patient states that today she feels improved. She has not had any rectal bleeding or anal pain today [facility] Imaging Services [address] [address] Abdomen/Pelvis WITH Contrast MR#: [id number] Name: SOPHIE VILLEGAS [facility] #:[id number] : 1970F 49 From: Carlo Giraldo MD PCP:Rebekah Pastrana MD Status:REG ER Study:Abdomen/Pelvis WITH Contrast Date of Exam:03/18/20 Exam#[id number] Ordering Dr: Jerrell Leon MD STUDY: CT ABDOMEN AND PELVIS WITH CONTRAST REASON FOR EXAM: Female, 49 years old. DIVERTICULITIS AND GI BLEED. PRIOR HYSTERECTOMY, TUBIAL LIGATION AND CHOLECYSTECTOMY RADIATION DOSAGE (If Supplied By Facility): CTDIvol = ( 14.37 ) mGy, DLP = ( 809.51 ) mGycm TECHNIQUE: Transaxial images were obtained from the dome of the diaphragm to the symphysis pubis without oral contrast. Oral and amp; IV Gastrografin and amp; 100mL Isovue-300 was administered. Sagittal and coronal images were reconstructed. Individualized dose optimization techniques were used for this CT. COMPARISON: None. FINDINGS: Several tiny calcified benign granulomas are present in the bilateral lower lobes. Normal liver. No intrahepatic biliary duct dilatation or liver mass. There is non-visualization of the gallbladder, compatible with a prior cholecystectomy. Normal spleen. Normal pancreas. Normal bilateral adrenal glands. Normal right kidney. Normal left kidney. Small simple cysts of the left kidney noted and require no further evaluation. No hydronephrosis or renal masses. No large stones. Normal visualized stomach. Normal small intestine. Normal colon. No bowel dilatation or obstruction. No free air or free fluid. The appendix is visualized and appears normal. Normal abdominal aorta. Normal inferior vena cava. Normal retroperitoneum. Normal urinary bladder. There is absence of the uterus consistent with a prior hysterectomy. Normal abdominal wall. There are diffuse degenerative changes of the visualized lumbar spine. Benign fatty hemangioma seen in the lower thoracic vertebra. CT/Abdomen/Pelvis WITH Contrast IMPRESSION: No demonstrated acute or significant process of the abdomen and pelvis. Electronically Signed: Carlo Giraldo MD at 17:09 EDT , Service support , CC: Rebekah Pastrana MD; Sanjiv Leon MD ~ Store Specialist: Signed Exam Const General: cooperative, healthy appearing, comfortable, no acute distress Nutritional Appearance: obese Orientation: alert, awake [facility] Head: normal to inspection Eyes General: appearance normal, both eyes and all related structures Neck Neck: normal visual inspection Resp Effort & Inspection: normal respiratory effort Auscultation: clear to auscultation bilaterally Cardio Rate: regular rate Rhythm: regular rhythm GI Inspection: obesity Palpation: soft, no hepatosplenomegaly Skin General: no rashes or lesions noted Neuro Cognition: normal cognition Extrem General: no calf tenderness Psych Affect: normal affect Assessment & Plan Problems 1. Rectal hemorrhage K62.5 2. Anal fissure K60.2 3. Collagenous colitis K52.831 Plan I recommended the patient a colonoscopy with possible biopsy or polypectomy as indicated. Very careful inspection for potential etiologies of rectal bleeding will be pursued. Careful inspection of the anal fissure. I anticipate random colonic biopsies to evaluate regarding active collagenous colitis. The patient has not been on medication she may require medical treatment. She has had an opportunity to ask and have questions answered. We will schedule and expedite her care. I appreciate the opportunity of assisting with her surgical management. Cc: Dr. Sanjiv Leon and Dr.Chitra Victoriano Lucas M.D., F.A.C.S. Coding Level of Care Code 56744 Diagnoses Rectal hemorrhage K62.5 Anal fissure K60.2 Collagenous colitis K52.831 Intake Visit Reasons: F/U CSCOPE 03/24/ HEMORRHOIDECTOMY Chief Complaint: rectal bleeding Allergies Penicillins Allergy (Verified 04/03/20 12:31) Hives Medications Ergocalciferol [Vitamin D] 50,000 unit PO ALBERT 02/11/14 [History Confirmed 04/03/20] Acetaminophen [Tylenol Extra Strength] 1,000 mg PO Q4H PRN PRN 07/23/19 [History Confirmed 04/03/20] Meclizine HCl [Antivert] 25 mg PO 4X/DAY PRN PRN #20 tab 07/23/19 [Rx Confirmed 04/03/20] Rosuvastatin Calcium 20 mg PO QHS 07/23/19 [History Confirmed 04/03/20] Omeprazole 20 mg PO DAILY 03/20/20 [History Confirmed 04/03/20] PFSH Medical History (Updated 04/03/20 @ 12:[address] Trey Lucas MD) Internal bleeding hemorrhoids (Acute) Collagenous colitis (Acute) Anal fissure (Acute) Rectal hemorrhage (Acute) Acid reflux (Acute) Diarrhea (Acute) Nausea (Acute) Rectal bleeding (Acute) Sleep apnea (Acute) Surgical History (Updated 03/24/20 @ 08:[address] Trey Lucas MD) History of hysterectomy (Acute) History of laparoscopic cholecystectomy (Acute) Social History (Updated 04/03/20 @ 12:[address] Trey Lucas MD) Smoking Status: Never smoker alcohol intake: never substance use type: does not use HPI HPI Chief Complaint: rectal bleeding Details: Patient was informed that this visit will be billed to patient. This visit was conducted during COV- pandemic. SOPHIE VILLEGAS, is a 49 F who presents to the office today for virtual follow-up of her colonoscopy with polypectomy that I performed for her on March 24, 2020. Random colonic biopsies were not remarkable. I removed a proximal sigmoid colon polyp in the mid sigmoid colon polyp both were tubular adenomas. I felt however that the source of her rectal bleeding that a been occurring was secondary to grade 3 internal and external hemorrhoids. My previous history is as noted below. She had been referred to me through the [facility] emergency room. Today's virtual visit discussed surgical treatment options of bleeding internal hemorrhoids. [facility] Medical Records Department [address] [place] [address] Colonoscopy Report MR#: [id number] Name:SOPHIE VILLEGAS [facility] #:[id number] : 1970 49From: Trey Lucas MD PCP:Dr. Rebekah Pastrana MD Status:[facility] Patient Name: Sophie Villegas Procedure Date: 03/24/2020 9:15 AM Date of : 1970 Age: 49 Procedure: Colonoscopy Indications: Rectal bleeding Providers: Trey Lucas MD Referring MD: Trey Lucas MD Medicines: See the Anesthesia note for documentation of the administered medications Patient Profile: Last Colonoscopy: 2006. Complications: No immediate complications. Procedure: Pre-Anesthesia Assessment: - Prior to the procedure, a History and Physical was performed, and patient medications and allergies were reviewed. The patient's tolerance of previous anesthesia was also reviewed. The risks and benefits of the procedure and the sedation options and risks were discussed with the patient. All questions were answered, and informed consent was obtained. Prior Anticoagulants: The patient has taken no previous anticoagulant or antiplatelet agents. ASA Grade Assessment: II - A patient with mild systemic disease. After reviewing the risks and benefits, the patient was deemed in satisfactory condition to undergo the procedure. After I obtained informed consent, the scope was passed under direct vision. Throughout the procedure, the patient's blood pressure, pulse, and oxygen saturations were monitored continuously. The pediatric colonoscope was introduced through the anus and advanced to the cecum, identified by appendiceal orifice and ileocecal valve. The colonoscopy was performed without difficulty. The patient tolerated the procedure well. The quality of the bowel preparation was good. The ileocecal valve and the appendiceal orifice were photographed. Scope In: 9:24:07 AM Scope Withdrawal Time 0 hours 7 minutes 39 seconds Scope Out: 9:36:21 AM Total Procedure Duration Time 0 hours 12 minutes 14 seconds Findings: The digital rectal exam findings include non-thrombosed external hemorrhoids, non-thrombosed internal hemorrhoids and internal hemorrhoids that prolapse with straining, but require manual replacement into the anal canal (Grade III). A 4 mm polyp was found in the proximal sigmoid colon. The polyp was sessile. The polyp was removed with a cold biopsy forceps. Resection and retrieval were complete. A 5 mm polyp was found in the mid sigmoid colon. The polyp was sessile. The polyp was removed with a cold biopsy forceps. Resection and retrieval were complete. Biopsies for histology were taken with a cold forceps from the entire colon for evaluation of microscopic colitis. A few diverticula were found in the sigmoid colon. The exam was otherwise without abnormality. Impression: - Non-thrombosed external hemorrhoids, non-thrombosed internal hemorrhoids and internal hemorrhoids that prolapse with straining, but require manual replacement into the anal canal (Grade III) found on digital rectal exam. - One 4 mm polyp in the proximal sigmoid colon, removed with a cold biopsy forceps. Resected and retrieved. - One 5 mm polyp in the mid sigmoid colon, removed with a cold biopsy forceps. Resected and retrieved. Biopsied. - Diverticulosis in the sigmoid colon. - The examination was otherwise normal. Recommendation: - Discharge patient to home. - Resume previous diet. - Continue present medications. - Repeat colonoscopy in 5 years for surveillance based on pathology results. - Telephone my office for pathology results in 1 week Consider virtual office appt. one week to discuss hemorrhoidectomy. Rectal bleeding likely secondary to internal hemorrhoids. Procedure Code(s): --- Professional --- 07517, Colonoscopy, flexible; with biopsy, single or multiple Diagnosis Code(s): --- Professional --- K64.2, Third degree hemorrhoids K64.4, Residual hemorrhoidal skin tags D12.5, Benign neoplasm of sigmoid colon K62.5, Hemorrhage of anus and rectum K57.30, Diverticulosis of large intestine without perforation or abscess without bleeding CPT copyright 2017 [employer]. All rights reserved. The codes documented in this report are preliminary and upon medical biller/coder review may be revised to meet current compliance requirements. Trey Lucas MD 03/24/2020 9:46:53 AM This report has been signed electronically. Number of Addenda: 0 Note Initiated On: 03/24/2020 9:15 AM 03/24/20 0946 Date Trey Lucas MD Intake Visit Reasons: rectal bleeding Allergies Penicillins Allergy (Verified 03/19/20 10:27) Hives Medications Ergocalciferol [Vitamin D] 50,000 unit PO ALBERT 02/11/14 [History Confirmed 03/19/20] Acetaminophen [Tylenol Extra Strength] 1,000 mg PO Q4H PRN PRN 07/23/19 [History Confirmed 03/19/20] Meclizine HCl [Antivert] 25 mg PO 4X/DAY PRN PRN #20 tab 07/23/19 [Rx Confirmed 03/19/20] Rosuvastatin Calcium 20 mg PO QHS 07/23/19 [History Confirmed 03/19/20] PFSH Medical History (Updated 03/19/20 @ 11:[address] Trey Lucas MD) Collagenous colitis (Acute) Anal fissure (Acute) Rectal hemorrhage (Acute) Acid reflux (Acute) Diarrhea (Acute) Nausea (Acute) Rectal bleeding (Acute) Sleep apnea (Acute) Surgical History (Updated 03/19/20 @ 10:24 by Kasandra Peña) History of hysterectomy (Acute) History of laparoscopic cholecystectomy (Acute) Family History (Updated 03/19/20 @ 10:25 by Kasandra Peña) Father Cancer Pancreatic cancer Mother Diabetes CVA (cerebral vascular accident) Social History (Updated 03/19/20 @ 11:[address] Trey Lucas MD) Smoking Status: Never smoker HPI HPI HPI: SOPHIE VILLEGAS, is a 49 F who presents to the office today for HPI HPI Surgical H&P: Yes HPI: SOPHIE VILLEGAS, is a 49 F who presents to the office today for surgical consultation regarding rectal bleeding. I was contacted by from the emergency room last night. The patient had presented with bright red rectal bleeding. She had had several episodes but by the time her ER evaluation had completed her rectal bleeding was slowing. She has had a known chronic anal fissure. This did not seem to be the site of her rectal bleeding and Dr. Leon referred the patient for surgical consultation and I will send a copy of my recommendations back. The patient's primary care physician is Dr. Pastrana. The patient most recent colonoscopy was by Dr. Maykel Barajas 2006. Random colonic biopsies did demonstrate collagenous colitis. The patient has not been on any medications. Over the years she has had postprandial urgent bowel movements particularly after eating out. She does not really describe liquidy stool except she will have a urgent soft stool which then can evolve into more of a diarrhea. Over the years she does not describe bright red blood per rectum or melena. The bright red rectal bleeding was a recent phenomena occurring yesterday. There is no family history of colon polyps or colon cancer. Her white blood cell count was 6.7 with a hemoglobin 12.6 hematocrit 38.7 platelet count 247,000. BUN is [address] scan of the abdomen pelvis was obtained at my request. This was performed looking for possible acute diverticulitis. No acute changes of the colon were identified or of the abdomen. The patient states that today she feels improved. She has not had any rectal bleeding or anal pain today [facility] Imaging Services [address] [place] [address] Abdomen/Pelvis WITH Contrast MR#: [id number] Name: SOPHIE VILLEGAS [facility] #:[id number] : 1970F 49 From: Carlo Giraldo MD PCP:Rebekah Pastrana MD Status:[facility] Study:Abdomen/Pelvis WITH Contrast Date of Exam:03/18/20 Exam#[id number] Ordering Dr: Jerrell Leon MD STUDY: CT ABDOMEN AND PELVIS WITH CONTRAST REASON FOR EXAM: Female, 49 years old. DIVERTICULITIS AND GI BLEED. PRIOR HYSTERECTOMY, TUBIAL LIGATION AND CHOLECYSTECTOMY RADIATION DOSAGE (If Supplied By Facility): CTDIvol = ( 14.37 ) mGy, DLP = ( 809.51 ) mGycm TECHNIQUE: Transaxial images were obtained from the dome of the diaphragm to the symphysis pubis without oral contrast. Oral and amp; IV Gastrografin and amp; 100mL Isovue-300 was administered. Sagittal and coronal images were reconstructed. Individualized dose optimization techniques were used for this CT. COMPARISON: None. FINDINGS: Several tiny calcified benign granulomas are present in the bilateral lower lobes. Normal liver. No intrahepatic biliary duct dilatation or liver mass. There is non-visualization of the gallbladder, compatible with a prior cholecystectomy. Normal spleen. Normal pancreas. Normal bilateral adrenal glands. Normal right kidney. Normal left kidney. Small simple cysts of the left kidney noted and require no further evaluation. No hydronephrosis or renal masses. No large stones. Normal visualized stomach. Normal small intestine. Normal colon. No bowel dilatation or obstruction. No free air or free fluid. The appendix is visualized and appears normal. Normal abdominal aorta. Normal inferior vena cava. Normal retroperitoneum. Normal urinary bladder. There is absence of the uterus consistent with a prior hysterectomy. Normal abdominal wall. There are diffuse degenerative changes of the visualized lumbar spine. Benign fatty hemangioma seen in the lower thoracic vertebra. CT/Abdomen/Pelvis WITH Contrast IMPRESSION: No demonstrated acute or significant process of the abdomen and pelvis. Electronically Signed: Carlo Giraldo MD at 17:09 EDT , Service support , CC: Rebekah Pastrana MD; Sanjiv Leon MD ~ Store Specialist: Signed Exam Const General: cooperative, healthy appearing, comfortable, no acute distress Nutritional Appearance: obese Orientation: alert, awake [facility] Head: normal to inspection Eyes General: appearance normal, both eyes and all related structures Neck Neck: normal visual inspection Resp Effort & Inspection: normal respiratory effort Auscultation: clear to auscultation bilaterally Cardio Rate: regular rate Rhythm: regular rhythm GI Inspection: obesity Palpation: soft, no hepatosplenomegaly Skin General: no rashes or lesions noted Neuro Cognition: normal cognition Extrem General: no calf tenderness Psych Affect: normal affect Assessment & Plan Problems 1. Rectal hemorrhage K62.5 2. Anal fissure K60.2 3. Collagenous colitis K52.831 Plan I recommended the patient a colonoscopy with possible biopsy or polypectomy as indicated. Very careful inspection for potential etiologies of rectal bleeding will be pursued. Careful inspection of the anal fissure. I anticipate random colonic biopsies to evaluate regarding active collagenous colitis. The patient has not been on medication she may require medical treatment. She has had an opportunity to ask and have questions answered. We will schedule and expedite her care. I appreciate the opportunity of assisting with her surgical management. Cc: Dr. Sanjiv Leon and Dr.Chitra Victoriano Lucas M.D., F.A.C.S. Coding Level of Care Code 48057 Diagnoses Rectal hemorrhage K62.5 Anal fissure K60.2 Collagenous colitis K52.831 Assessment & Plan Problems 1. Rectal bleeding K62.5 2. Internal bleeding hemorrhoids K64.8 Plan Today was a 10-minute virtual appointment to discuss her colonoscopy findings. Random biopsies were normal. I resected 2 tubular adenomas. I am recommending follow-up colonoscopy at 5 years. The patient has internal hemorrhoidal prolapse and hemorrhoidal bleeding. She continues to have problems. Because of the exuberance of her hemorrhoids I believe that she would be a better candidate for surgical hemorrhoidectomy. Today I have discussed the technique, benefit, risk of alternatives. No guarantees of success have been offered. I have encouraged her to initiate a daily fiber supplement. She has had an opportunity to ask and have questions answered. She is aware that we are in the Covid-19 pandemic. She is aware that the [facility] suggest a low local incidence. She would like to schedule and proceed with definitive surgery CC: Dr. Victoriano Lucas M.D., F.A.C.S. Coding Level of Care Code 5-10 minutes Diagnoses Rectal bleeding K62.5 Internal bleeding hemorrhoids K64.8 I have re-examined the patient. There are no clinical changes since date of exam. Procedure Criteria Procedure Type: Elective COVID Risk Discussion: The surgeon/proceduralist and patient have discussed in detail the risk of exposure to and/or potential harm posed by the COVID-19 virus with having a surgery/procedure at this time versus the risk of delaying the surgery/procedure. It is not possible to know either the risk of delaying the surgery or procedure or chance of getting an infection with perfect accuracy, but a joint decision was made between the patient and the surgeon/proceduralist to proceed at this time with the scheduled surgery/procedure as indicated on the consent form.
--- NOTE | 2020-04-10 08:33 | DCINST_ITS ---
Discharge Diet: No Restrictions Discharge Activity: Return to Normal Activity, May Not Drive - while you are taking narcotic pain medications. Do not drive, work with heavy equipment or sign legal documents for 24 hours after your surgery. Additional Activity Instructions:: Please take a daily fiber supplement in the form of Metamucil or Citrucel or FiberCon or Benefiber or genetic. Heaping tablespoon of powder in with some water daily. Mineral oil 30 cc (1 ounce) daily and food or liquid. Sitz baths in warm soapy water for 20 minutes can be utilized for comfort or for hygiene after bowel movements. You may utilize the provided dibucaine ointment every 2 hours as needed for comfort Allergies/Adverse Reactions: Allergies Penicillins Allergy (Verified 04/10/20 06:49) Hives Medications to take at Discharge Ergocalciferol [Vitamin D] 50,000 unit PO ALBERT 02/11/14 Acetaminophen [Tylenol Extra Strength] 1,000 mg PO Q4H PRN PRN 07/23/19 Meclizine HCl [Antivert] 25 mg PO 4X/DAY PRN PRN #20 tab 07/23/19 Rosuvastatin Calcium 20 mg PO QHS 07/23/19 Omeprazole 20 mg PO DAILY 03/20/20 Primary Care Physician: Rebekah Pastrana MD [Primary Care Provider] - Test Results: Test results from this visit will be discussed in further detail at your follow- up appointment, if applicable. Please Follow Up With: Trey Lucas MD - [phone] When: Plan to have a follow up approximately 3 weeks after surgery.
--- NOTE | 2020-04-10 08:50 | HEM_PTH ---
PATIENT: TRUNG PEÑA [place] [facility] [place][id number] AGE/SX: 49/F ROOM: RE04/10/[address]: Dr. Trey Lucas MD : [id number] BED: DIS: 04/10/2020 SPEC #: [id number] RECD: 04/10/20 12:55 STATUS: BLANCO RUPALI #: [id number] CALLIE: 04/10/20 08:[address]: Trey Lucas DEPT: SURGICAL PATHOLOGY RECD BY: Jose Crum ENTERED: 04/13/20 09:26 SP TYPE: HEMORRHOID OTHR DR: Dr. Rebekah Pastrana MD Tissues: HEMORRHOIDS Procedures: Surgery Specimen Level IV HEADER OPERATION: Hemorrhoidectomy PRE-OP DIAGNOSIS: Rectal hemorrhage; anal fissure; collagenous colitis TISSUE SUBMITTED: Hemorrhoids MICROSCOPIC DIAGNOSIS Hemorrhoids: Fragments of anorectal mucosa with dilated and congested blood vessels, consistent with hemorrhoids. SJ:dennise 04/14/20 MICROSCOPIC DESCRIPTION Slides are reviewed. GROSS DESCRIPTION Received in fixative is one container labeled with the patient's name and designated hemorrhoids. The specimen consists of four glistening fragments of cruz mucosa ranging in size from 1 cm to 3.2 cm. No mass lesions are identified. Aerial Lineman sections are submitted in one cassette. / AM:dennise 04/13/20 TC:5 CPT: 18761
[2020-04-10] MEDS: Lubricating Jelly 60 GM Tube 30 GM TOPICAL (09:11)
[2020-04-10] MEDS: Bupivacaine Mpf 0.5% 30 ML VIAL (09:11)
[2020-04-10] MEDS: Dibucaine 30 GM Tube 1 APPLIC (09:11)
[2020-04-10] MEDS: BUPIVACAINE LIPOSOME/PF 20 ML VIAL OPERA.SITE (09:11)
--- NOTE | 2020-04-10 09:56 | PCM.OPRPT ---
Problem List (1) Internal bleeding hemorrhoids Status: Acute Report of Operation Date of Procedure: 04/10/20 Pre-Operative Diagnosis: Symptomatic internal and external hemorrhoids Post-Operative Diagnosis: Same Surgery/Procedure Performed:: Extensive 3 excision surgical hemorrhoidectomy Description of Surgical Findings:: Timeout and informed consent was obtained. 49-year-old female was taken the operating place initially supine on the table. She underwent general endotracheal vision anesthesia. Kaia mycin 900 g given intravenously preoperatively. She was then placed prone on the table with care for shoulder and facial and hip rolls. The table was jackknife. The perianal area was sterilely prepped and draped. 20 cc of Exparel was mixed with 30 cc of 0.5% Marcaine. Local was instilled completely circumferentially around the anus with careful aspiration. Anal speculum was inserted. There was bulky disease right 2 o'clock position right 5 o'clock position and left 9 o'clock position. 3 wedges of internal and external hemorrhoidal tissue was excised by initially placing a apical suture of 2-0 chromic. This was then subsequently reinforced with a [id number] suture of 0 Vicryl. Harmonic scalpel was then used to excise the external and internal components taking great care to inspect for the sphincter mechanism and preserve it. The mucosa was then approximated with a running locking 2-0 chromic. This was replicated for all 3 excisions. The main bulk of the disease was right 2:00 in the right 5:00 with a lesser amount left 9:00. Dibucaine was placed on Vaseline gauze and was inserted followed by dry covered dressings. Sponge instrument and needle counts were reported the surgeon to be correct. Blood loss was minimal. She tolerated the procedure well and was taken to the recovery area in satisfactory edition without apparent complication. Specimens hemorrhoids. Drains none. Blood loss minimal. Trey Lucas M.D., F.A.C.S. Type of Anesthesia:: General Anesthesiologist: Rakel Nuno
== END 2020-04-10 12:31 | disposition home or self-care (01) ==
LOC: SDC 06:33 → AC 06:33
PROVIDERS: PCP Internal Medicine; Referring Provider Surgery; Visit Provider Surgery
PROC: (CPT 46260; principal; 2020-04-10 08:35)
DX: K64.4 Residual hemorrhoidal skin tags (principal); K64.2 Third degree hemorrhoids; K21.9 Gastro-esophageal reflux disease without esophagitis; G47.30 Sleep apnea, unspecified; K60.1 Chronic anal fissure; K52.831 Collagenous colitis; Z79.899 Other long term (current) drug therapy; E78.00 Pure hypercholesterolemia, unspecified; Z11.59 Encounter for screening for other viral diseases
CPT/HCPCS: 46260; 87635; 88304; 88305; 93005; G2023; J7120; J2405; U0004

== ENCOUNTER → 2021-05-07 12:45 | Outpatient (CLI) | payer OTHER, SELFPAY ==
[2021-05-07 12:41] VITALS: BMI 31.4
--- NOTE | 2021-05-07 12:50 | RAD_ITS ---
STUDY: X-RAY - LEFT TIBIA AND FIBULA REASON FOR EXAM: Anterior left mid shaft pain, lower leg injury. TECHNIQUE: 2 view(s) of the tibia and fibula were obtained. COMPARISON: None. FINDINGS: Normal visualized tibia. Normal visualized fibula. There is anterior soft tissue swelling RAD/Tibia & Fibula 2 Views IMPRESSION: Anterior soft tissue swelling. No demonstrated fracture. Electronically Signed: Raza Culver MD at 13:25 EDT Tel , Service support ,
--- NOTE | 2021-05-07 12:50 | RAD_ITS ---
STUDY: X-RAY - LEFT FOOT CLINICAL: Left foot pain, bruising, left foot injury. TECHNIQUE: 3 view(s) of the foot. COMPARISON: None. FINDINGS: Normal talus, calcaneus, and tarsal bones. Normal visualized subtalar, talonavicular, calcaneocuboid, tarsal and tarsometatarsal articulations. Normal metatarsi. Normal metatarsophalangeal joint of the great toe. Normal tibial and fibular sesamoid bones. Normal interphalangeal joint of the great toe. Normal phalanges of the great toe. Normal second through fifth metatarsophalangeal joints. Normal interphalangeal joints and phalanges of the lesser toes. There is dorsal soft tissue swelling. RAD/Foot min 3 Views IMPRESSION: Soft tissue swelling. No demonstrated fracture. Electronically Signed: Raza Culver MD at 13:42 EDT Tel , Service support ,
== END ==
PROVIDERS: PCP Internal Medicine; Referring Provider Physician Assistant Surgical; Visit Provider Physician Assistant Surgical
DX: S80.12XA Contusion of left lower leg, initial encounter (principal); S90.32XA Contusion of left foot, initial encounter
CPT/HCPCS: 73590; 73630

== ENCOUNTER 2024-12-07 00:48 | Emergency (ER) | payer OTHER, SELFPAY ==
[2024-12-07 00:50] VITALS: BP 168/92; PULSE 114; RESP 18; TEMP 37.1; O2SAT 95; BMI 30.5
--- NOTE | 2024-12-07 01:20 | RAD_ITS ---
EXAM: XR CHEST, 2 VIEWS CLINICAL INDICATION: cough TECHNIQUE: Frontal and lateral views of the chest. COMPARISON: 07/23/2019. FINDINGS: LUNGS AND PLEURAL SPACES: Unremarkable. No consolidation or edema. No pneumothorax. No effusion. HEART: Unremarkable. Cardiac silhouette not enlarged. MEDIASTINUM: Central airways and mediastinal contour are unremarkable. BONES/JOINTS: Unremarkable. No acute fracture. SOFT TISSUES: Unremarkable. RAD/Chest PA and Lateral IMPRESSION: No acute cardiopulmonary abnormality. Electronically Signed: Víctor Carpenter MD at 2:06 EST ,
[2024-12-07] MEDS: dexAMETHasone 10 MG/ML Vial PO.IVFORM (01:21)
[2024-12-07] MEDS: Ondansetron ODT 4 MG Tablet PO (01:21)
[2024-12-07] MEDS: guaiFENesin/Codeine 5 ML UDC 10 ML PO (01:25)
--- NOTE | 2024-12-07 01:45 | EDS_ITS ---
HPI History of Present Illness Chief Complaint: Cold Sx Informant: patient and family Narrative Narrative: Patient is a 54-year-old female with past medical history of hypertension and GERD. She states that she is scheduled to have orthopedic surgery on Monday. This evening she began with subjective fevers and chills as well as cough congestion and fatigue. 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 She denies any history of lung pathology such as asthma or COPD and she denies smoking or vaping. She reports that she is coughing so hard that she is making herself nauseous and having bouts of emesis. She states [id number] medications do not seem to be helping and therefore she presents for evaluation [facility] Medical History Wears glasses Wears partial dentures Post-menopausal Easy bruising High cholesterol Restless legs History of diverticulitis Gastric reflux CPAP (continuous positive airway pressure) dependence Non-smoker Shortness of breath on exertion History of pain when walking Leg cramps History of edema History of stress test History of Holter monitoring Cardiology follow-up encounter Internal bleeding hemorrhoids Collagenous colitis Anal fissure Rectal hemorrhage Home Medications ?Medication ?Instructions ?Recorded ?Last Taken ?Type ergocalciferol (vitamin D2) 1,250 50,000 unit PO ALBERT 02/11/14 07/21/19 History mcg (50,000 unit) capsule acetaminophen 500 mg tablet 1,000 mg PO Q4H PRN PRN Pain 07/23/19 07/22/19 History rosuvastatin 20 mg tablet 20 mg PO QHS 07/23/19 07/22/19 History omeprazole magnesium 20 mg 20 mg PO DAILY PRN GERD 11/20/24 Unknown History tablet,delayed release (Prilosec OTC) codeine 10 mg-guaifenesin 100 mg/5 10 ml PO 4X/DAY PRN flu symptoms 7 12/07/24 Unknown Rx mL oral liquid (Guaifenesin AC) days #280 mL prednisone 20 mg tablet 40 mg (2 x 20 mg) PO DAILY 5 days 12/07/24 Unknown Rx #10 tabs Allergy/AdvReac Type Severity Reaction Status Date / Time Penicillins Allergy Hives Verified 12/07/24 00:49 Family History Father Cancer Pancreatic cancer Mother Diabetes CVA (cerebral vascular accident) Surgical History History of esophagogastroduodenoscopy (EGD) Hx of colonoscopy S/P hemorrhoidectomy History of hysterectomy History of laparoscopic cholecystectomy Social History Smoking Status: Never smoker alcohol intake: never substance use type: does not use ROS ROS ED Constitutional Constitutional ED: Reports chills, fever(s) and subjective ENT ENT ED: Reports rhinorrhea and sore throat Cardiovascular Cardiovascular: Denies chest pain Respiratory/Chest Respiratory/Chest: Reports cough; Denies dyspnea Gastrointestinal Gastrointestinal: Reports nausea and vomiting; Denies abdominal pain or diarrhea Genitourinary Genitourinary ED: Denies dysuria Musculoskeletal Musculoskeletal: Reports myalgias Integumentary Denies rash Neurologic Neurologic: Reports headache(s) Hematologic/Lymphatic Hematologic/Lymphatic: Denies easy bleeding or easy bruising Allergic/Immunologic Allergic/Immunologic ED: Denies mouth swelling, tongue swelling or urticaria EXAM Physical Exam Const Vital Signs: 12/07/24 00:50 12/07/24 00:53 Temperature 98.7 F Temperature Source Oral Pulse Rate 114 H Respiratory Rate 18 Respiratory Effort Normal Non-Labored Respiratory Pattern Normal Blood Pressure 168/92 H Blood Pressure Mean 117 Pulse Ox 95 Oxygen Delivery Method Room Air Positive well nourished and well developed General Appearance ED: well developed; Negative for pallor HEENT HEENT Narrative: Nasal mucosa is hyperemic and boggy Posterior pharynx with cobblestoning consistent with sinus drainage without airway edema or compromise; no secondary findings to suggest infection Bilateral TMs are retracted without secondary findings to suggest infection Eyes PERRL and EOMs intact bilaterally General Eye ED: Negative for scleral icterus Neck supple Neck Narrative: No nuchal rigidity or meningeal signs noted Resp normal respiratory effort and clear to auscultation bilaterally Resp Narrative: Breath sounds are diminished throughout but overall clear to auscultation w ithout signs of respiratory distress Cardio regular rhythm Rate: tachycardic and other Other Details: Tachycardic rate with regular rhythm Radial and carotid pulses are equal and symmetric GI normal to inspection, nondistended, normoactive bowel sounds, non-tender, non- distended and no masses Auscultation: normoactive bowel sounds Palpation: soft Extremity normal to inspection Extremity Narrative: No asymmetric pitting edema negative Homans' sign bilaterally Neuro oriented x3, CN's II-XII intact bilaterally and no sensory deficits noted Sensorium / Orientation: alert Motor Exam: strength 5/5 throughout Psych mental status grossly normal Skin no rashes or lesions noted and no wounds General Skin Exam: Negative for jaundice or pallor MDM MDM MDM Narrative Medical decision making narrative: Patient arrived to the ER hypertensive but has a past medical history of this. Otherwise she is not in respiratory distress or hypoxic. Constellation of symptoms is consistent with viral infection such as COVID versus influenza versus RSV. However there is also concern potential pneumonia based on her symptoms. A chest x-ray was obtained secondary to this and revealed no acute lung pathology. Viral swab was positive for influenza A which correlates with her symptom profile. After receiving Decadron and Robitussin AC she had improvement of her cough and improvement of her vital signs as well. On reevaluation she is not in respiratory distress she is not hypoxic she does not have physical exam her vital sign changes concerning for sepsis. Therefore there is no need for further intervention and she is otherwise safe for discharge History & Record Review Discussion w/independent historian: Patient and Family Radiography Diagnostic Testing: Clinical Impression(s) from Imaging Studies Chest X-Ray 12/07/24 01:20 IMPRESSION: No acute cardiopulmonary abnormality. Electronically Signed: Víctor Carpenter MD at 2:06 EST , Chest x-ray as interpreted by the emergency medicine physician reveals no acute infiltrate pneumothorax or pleural effusion Discharge Plan Triage Chief Complaint: Cold Sx ED Provider: Bereket Hussein Dx/Rx/DC Orders Clinical Impression: Influenza A, Hyperlipidemia, GERD (gastroesophageal reflux disease) Instructions: ED Influenza (Adult) Prescriptions: New prednisone 20 mg tablet 40 mg PO DAILY 5 Days Qty: 10 0RF codeine-guaifenesin [Guaifenesin AC] 10-100 mg/5 mL liquid 10 ml PO 4X/DAY PRN (Reason: flu symptoms) 7 Days Qty: 280 0RF No Action ergocalciferol (vitamin D2) 50,000 UNIT capsule 50,000 unit PO ALBERT acetaminophen 500 MG tablet 1,000 mg PO Q4H PRN PRN (Reason: Pain) rosuvastatin 20 MG tablet 20 mg PO QHS omeprazole magnesium [Prilosec OTC] 20 mg tablet,delayed release (DR/EC) 20 mg PO DAILY PRN (Reason: GERD) Stand Alone Forms: ED Work / School Excuse Primary Care Provider: Rebekah Pastrana Referrals: Rebekah Pastrana MD [Primary Care Provider] - Activity Restrictions/Additional Instructions: You have influenza A. This is a viral infection that can persist for 5 to 14 days with the average being 7 days. You may spike a high fever with this and can potentially have the fever the entire time you have the virus. Take Tylenol or Motrin for pain and fever control. Keep yourself well-hydrated. Return to the ER she have any further concerns or worsening of symptoms Print Language: American Disposition Disposition: Home, Self Care
[2024-12-07 02:31] VITALS: BP 126/83; PULSE 97; RESP 16; TEMP 36.9; O2SAT 95
== END 2024-12-07 02:32 | disposition home or self-care (01) ==
PROVIDERS: Emergency Provider Emergency Medicine; PCP Internal Medicine; Visit Provider Emergency Medicine
DX: J10.1 Influenza due to other identified influenza virus with other respiratory manifestations (principal); E78.00 Pure hypercholesterolemia, unspecified; K21.9 Gastro-esophageal reflux disease without esophagitis; Z79.899 Other long term (current) drug therapy
CPT/HCPCS: 71046; 87631; 99283

== ENCOUNTER 2025-01-30 08:55 | Day surgery (SDC) | payer OTHER, SELFPAY ==
--- NOTE | 2024-11-22 08:38 | EKG12_ITS ---
Test Reason : PREOP Blood Pressure : */* mmHG Vent. Rate : 73 BPM Atrial Rate : 73 BPM P-R Int : 136 ms QRS Dur : 80 ms QT Int : 396 ms P-R-T Axes : 45 17 47 degrees QTcB Int : 436 ms Normal sinus rhythm Normal ECG Confirmed by Víctor Krause ([id number]), index editor ISIAH CAMPOS ([id number]) on 11/22/2024 1:00:22 PM Referred By: Anatoly Granda Confirmed By: Víctor Krause
[2024-11-22 09:12] LABS: Absolute Lymphocyte Count 2.55 X10^3/uL (0.83-4.51); Absolute Neutrophil Count 4.6 X10^3/uL (2.0-7.7); Basophil# 0.04 X10^3/uL; Basophil% 0.5 % (0-1); Eosinophil# 0.28 X10^3/uL; Eosinophils% 3.6 % (0-5); Hematocrit 39.3 % (37-47); Hemoglobin 12.8 g/dL (12.0-15.0); Lymphocyte # 2.55 X10^3/ul (0.83-4.51); Lymphocyte % 32.5 % (19-41); Mean Corp Hgb Conc 32.6 g/dL (32-36); Mean Corpuscular Hgb 28.3 pg (27.0-32.0); Mean Corpuscular Volume 86.9 fL (81-99); Mean Platelet Vol. 10.1 fl (6.2-12.0); Monocyte# 0.33 X10^3/uL; Monocyte% 4.2 % (0-10); NRBC Flagged by Analyzer 0 % (0-5); Neutrophil # 4.61 X10^3/uL (2.7-7.7); Neutrophil % 58.8 % (47-70); Platelet Count 250 K/mm3 (150-450); RBC Distribution Width CV 13.3 % (11.6-14.6); RBC Distribution Width SD 42.2 fl (35.1-43.9); Red Blood Count 4.52 M/mm3 (4.2-5.4); White Blood Count 7.8 K/mm3 (4.4-11.0)
[2024-11-22 09:37] LABS: Anion Gap 7 (5-15); BUN 16 mg/dL (7-18); BUN/Creat Ratio 24.3 RATIO (10-20); Calcium,Total 9.1 mg/dL (8.5-10.1); Chloride 107 mmol/L (98-107); Creatinine, Serum 0.66 mg/dL (0.55-1.02); EST Glomerular Filtration Rate 99 mL/min (>60); Est Glom Filt Rate - Afr Amer 119 mL/min (>60); Glucose 101 mg/dL (74-106); Potassium 3.6 mmol/L (3.5-5.1); Sodium Level 140 mmol/L (136-145)
[2025-01-30] VITALS (11 sets, daily range): BP systolic 123–137; BP diastolic 67–81; PULSE 75–90; RESP 16–18; TEMP 36.2–36.5; O2SAT 97–99; BMI 29.8
[2025-01-30] MEDS: 0.9% Normal Saline (1000mL) 1,000 ML 15 ML IV (09:34)
--- NOTE | 2025-01-30 10:31 | PCM.PRE.AN2 ---
ASA Classification* ASA Classification ASA Classification: 3 Assessment & Plan Anesthesia* Anesthesia Assessment Anesthesia Assessment: Discussed sedation and/or anesthesia options, risks, benefits, and alternatives with patient/parents/legal guardian/POA. Questions invited. The patient/parents/legal guardian/POA seems to understand and agrees to proceed with anesthesia plan. Reviewed the physical assessment, medical history, allergy history and patient home medications list prior to surgery/procedure/anesthetic and documented any changes. Performed airway and anesthesia risk assessments. Anesthesia Type Anesthesia Type: General History Source History Obtained from:: Patient and Chart Anesthesia Focused Assessment* Temperature: 97.2 F Pulse Rate: 79 Blood Pressure: 123/67 Respiratory Rate: 18 Pulse Ox: 98 Oxygen Delivery Method: Room Air Airway Assessment Mouth opens: >3 cm Mallampati Score: IV Teeth Condition: Missing (Patient has a few missing teeth on the bottom. Remainder of teeth are tight.) and Partial (Patient has upper partial. It is out.) Neck Range of motion (ROM): Limited ROM (Slight decrease in extension) Focused Labs Anesthesia Preop lab: CBC WBC 7.8 K/mm3 (4.4-11.0) 11/22/24 09:02 11/22/24 RBC 4.52 M/mm3 (4.2-5.4) 11/22/24 09:02 11/22/24 Hgb 12.8 g/dL (12.0-15.0) 11/22/24 09:02 11/22/24 Hct 39.3 % (37-47) 11/22/24 09:02 11/22/24 Plt Count 250 K/mm3 (150-450) 11/22/24 09:02 11/22/24 CHEMISTRY Potassium 3.6 mmol/L (3.5-5.1) 11/22/24 09:02 11/22/24 Sodium 140 mmol/L (136-145) 11/22/24 09:02 11/22/24 BUN 16 mg/dL (7-18) 11/22/24 09:02 11/22/24 Creatinine 0.66 mg/dL (0.55-1.02) 11/22/24 09:02 11/22/24 Glucose 101 mg/dL (74-106) 11/22/24 09:02 11/22/24 COAG PT 12.5 SECONDS (11.7-14.9) 03/18/20 13:10 03/18/20 Pre-Assessment Diagnosis/Proposed Procedure Planned Operative Procedure(s): RIGHT KNEE ARTHROSCOPIC PARTIAL MEDIAL MENISECTOMY PARTIAL LATERAL MENISECTOMY Anesthesia History Anesthesia History - senior technical analyst: Anesthesia History - senior technical analyst Hx Hospitalization No 01/20/25 08:24 Any Problems With Anesthesia Yes: N,V 01/20/25 08:24 Cholinesterase deficiency No 01/20/25 08:24 You/Your Family Experience No 01/20/25 08:24 fever (hyperthermia) with Relationship Recent Exposure to Contagious No 01/30/25 09:23 Disease Does patient have nerve No 01/20/25 08:24 stimulator Patient instructed to have device shut off --Does patient have Pacemaker No 01/30/25 09:25 or ICD? When Was Last Pacemaker Check QUESTION #4 FULL TEXT: You/Your Family Experience fever (hyperthermia) with Anesthesia Last Oral Intake Last Oral intake: Last Oral Intake NPO since 21:00 01/30/25 09:25 Meds taken in AM with sips of No 01/30/25 09:25 water? Meds patient instructed to take am of surgery PONV PONV - senior technical analyst: PONV - senior technical analyst Female Yes 01/20/25 08:24 HX of Motion Sickness Yes 01/20/25 08:24 HX of N/V After Surgery Yes 01/20/25 08:24 Non-Smoker Yes 01/20/25 08:24 Duration of Surgery greater Yes 01/20/25 08:24 than 60 minutes Number of Risk Factors 5 01/20/25 08:24 PONV Score Severe Risk 01/20/25 08:24 Height & Weight Height & Weight: Anesthesia: Height & Weight Height 5 ft 3.5 in 01/30/25 09:25 Weight: 77.564 kg 01/30/25 09:25 Body Mass Index (BMI) 29.8 01/30/25 09:25 Respiratory Assessment Respiratory Assessment - senior technical analyst: Respiratory Tract Infection Hx - senior technical analyst Hx Respiratory Tract Infection No 01/20/25 08:24 STOP Sleep Apnea STOP Sleep Apnea - senior technical analyst: STOP Sleep Apnea - senior technical analyst Hx Hypertension No 01/20/25 08:24 Hx Sleep Apnea Yes 01/20/25 08:24 CPAP Yes 01/20/25 08:24 BIPAP No 01/20/25 08:24 Do you snore loudly (louder than talking or can be heard Do you often feel tired/ fatigued/ sleepy during daytime? Has anyone observed you stop breathing during sleep? STOP Results Positive 01/20/25 08:24 QUESTION #5 FULL TEXT : Do you snore loudly (louder than talking or can be heard through closed doors)? 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 Specify any problems Hx of Preganancy in last 3 No 01/20/25 08:24 Months Nurse Filling Out Transfusion DSCHRIBER 01/20/25 08:24 & Questions: Date: 01/20/25 01/20/25 08:24 Time: 08:24 01/20/25 08:24 Patient unable to answer at this time (ie. confused, unrespo /Reproduction History /Reproductive History - senior technical analyst: /Reproductive Hx- senior technical analyst Hx Now No 01/20/25 08:24 Gestational Age (in weeks): EDC: Hx Hx Para Hx Section SAB No 01/20/25 08:24 Active Medications Active Medications: Current Medications Generic Name Dose Route Start Last Admin Trade Name Freq PRN Reason Stop Dose Admin Cefazolin Sodium 2 gm/ N/A 20 mls @ 400 mls/hr 01/30/25 14:10 IV 01/30/25 14:12 PREOP ONE Sodium Chloride 1,000 mls @ 15 mls/hr 01/30/25 09:10 01/30/25 09:34 IV 15 mls/hr .Q48H RONNA Administration PFSH Medical History Wears glasses Wears partial dentures Post-menopausal Easy bruising High cholesterol Restless legs History of diverticulitis Gastric reflux CPAP (continuous positive airway pressure) dependence Non-smoker Shortness of breath on exertion History of pain when walking Leg cramps History of edema History of stress test History of Holter monitoring Cardiology follow-up encounter Internal bleeding hemorrhoids Collagenous colitis Anal fissure Rectal hemorrhage Home Medications ?Medication ?Instructions ?Recorded ?Last Taken ?Type ergocalciferol (vitamin D2) 1,250 50,000 unit PO ALBERT 02/11/14 07/21/19 History mcg (50,000 unit) capsule acetaminophen 500 mg tablet 1,000 mg PO Q4H PRN PRN Pain 07/23/19 01/29/25 History rosuvastatin 20 mg tablet 20 mg PO QHS 07/23/19 01/28/25 History omeprazole magnesium 20 mg 20 mg PO DAILY PRN GERD 11/20/24 01/29/25 History tablet,delayed release (Prilosec OTC) cetirizine 10 mg tablet (Zyrtec) 10 mg PO DAILY 01/20/25 01/28/25 History Allergy/AdvReac Type Severity Reaction Status Date / Time Penicillins Allergy Hives Verified 01/30/25 09:21 Family History Father Cancer Pancreatic cancer Mother Diabetes CVA (cerebral vascular accident) Surgical History History of esophagogastroduodenoscopy (EGD) Hx of colonoscopy S/P hemorrhoidectomy History of hysterectomy History of laparoscopic cholecystectomy Social History Smoking Status: Never smoker alcohol intake: never substance use type: does not use Review of Systems (Anesthesia) ROS Narrative System reviewed and no additional complaints, except as documented.
[2025-01-30] MEDS: Cefazolin 2 GM in Syringe IV (10:52)
[2025-01-30] MEDS: Bupiv/Epi 0.25% 30 ML Vial (11:15)
[2025-01-30] MEDS: Epinephrine (1 mg/ml) 1 MG/ML VIAL (11:15)
--- NOTE | 2025-01-30 11:48 | PCM.POST.ANE ---
Anesthesia: Postop Eval I Current Vital Signs Temperature: 97.2 F Pulse Rate: 90 Blood Pressure: 134/75 Respiratory Rate: 16 Pulse Ox: 98 Oxygen Delivery Method: Room Air Assessment Airway patent: Yes Spontaneous unlabored respirations: Yes Mental status: Awake and Calm nausea: No Vomiting: No Anesthesia Complication: No Fluid Hydration Crystalloid volume administer (ml): 1,000 Total IV fluid infused: 1,000 Progress Note Anesthesia document: Postop Eval 1 completed: Yes
[2025-01-30] MEDS: Ketorolac 15 MG/ML Vial IV (12:07)
--- NOTE | 2025-01-30 14:04 | PCM.OPRPT ---
Operative Report (Standard) Operative Information Date of Procedure: 01/30/25 Pre-Operative Diagnosis: Right knee medial and lateral meniscus tears Post-Operative Diagnosis: Right knee medial lateral meniscus tears Surgery/Procedure Performed: Right knee arthroscopic partial medial and lateral meniscectomy set o type operator: Yes Cocoa Butter Filter Operator: Agnieszka Stephen Tasks completed by medical technician assistant: Opening & closing Additional environmental services assistant?: No Type of Anesthesia: General RN Documented Start/Stop Times: Operation Date: 01/30/25 10:45 Case Time Into Pre-Op 01/30/25 09:05 Out of Pre-Op 01/30/25 10:47 Anesthesia Start 01/30/25 10:52 Into Room 01/30/25 10:52 Procedure Start 01/30/25 11:15 Procedure End 01/30/25 11:32 Anesthesia End 01/30/25 11:40 Out of Room 01/30/25 11:40 Into Recovery 01/30/25 11:43 Out of Recovery 01/30/25 12:30 Into Phase II Recovery 01/30/25 12:31 Out of Phase II 01/30/25 13:05 Procedure Start Time: 11:15 Procedure Stop Time: 11:32 Select all DRAINS/GRAFTS/IMPLANTS that apply: None Estimated Blood Loss: 2 cc Specimen collected: No Description of surgery: Description of procedure: Patient identified preoperative holding her by name, correct number, and date of . The operative extremity was marked. All questions were answered to the patient satisfaction. At time of his procedure, patient brought the operative suite positioned supine on standard operating table. All bony prominences well-padded. General anesthesia was administered and LMA was placed. A well-padded pneumatic tourniquet was applied to the operative upper thigh. Well-leg rosas was placed on the patient's left thigh. Circumferential arthroscopic leg rosas was placed around the patient's right side. The foot of bed was dropped 90 degrees. We prepped and draped the right lower extremity in a normal, sterile orthopedic fashion. We performed a timeout confirming the side, site, and operation to be performed. No concerns were voiced and we elected to proceed with surgery. 2 g Ancef was administered IV prior to tourniquet inflation. I then exsanguinated left lower extremity with Esmarch bandage. Tourniquet was inflated to 250 mmHg for approximately 15 minutes. Esmarch was removed. Standard anterolateral portal was then established 90 degrees of flexion. Blunt tipped trocar was used to enter the knee joint. Knee was filled with normal saline with epinephrine. Arthroscope was then introduced. Diagnostic arthroscopy of the patellofemoral joint demonstrated grade 1-2 diffuse chondromalacia. Medial and lateral gutter were unremarkable. Valgus stress was applied the knee to anterior the medial compartment with the knee in extension. Anterior medial portal was established under direct visualization. Medial compartment was then examined. Cartilage demonstrated grade I chondromalacia diffusely. Radial tear at the posterior horn body junction was identified and debrided with a combination of baskets and shaver to a stable rim. Intercondylar notch was pristine with normal ACL and PCL. Lateral compartment was then entered. Varus stress was applied. Degenerative tearing of the inner third of the meniscus was noted and debrided to a stable rim of cartilage with combination of baskets and shaver. The knee was thoroughly lavaged after debridement of the fat pad with the arthroscopic shaver. The knee was anesthetized with 30 cc total quarter percent bupivacaine with epinephrine. Portal sites were closed in interrupted [id number] fashion with 3-0 nylon suture. Bulky sterile compression system was applied. Tourniquet is deflated. Patient was safely awoken the operative suite and extubated. She was transferred to his gurney and subsequent to PACU in stable condition. Postoperative plan: Weightbearing, range of motion as tolerated operative knee Follow-up in 2 weeks for suture removal Physical therapy to start at 2 weeks Multimodal pain management with opioid, NSAID and Tylenol Aspirin 81 mg for DVT prophylaxis x 2 weeks Ice and elevation. Surgical Findings: Medial and lateral meniscus tears Complications Complications: No Admit VTE Documentation VTE Present on Admission: No VTE Mechan Device Prophylaxis: SCD's VTE Pharm Prophylaxis ordered?: Yes
--- NOTE | 2025-01-30 14:18 | POSTOPAN2_ITS ---
Anesthesia Postop Eval I Sum Postop Eval Completion status Anesthesia document: Postop Eval 1 completed: Yes Anesthesia Postop Eval I Summary Anesthesia Postop Eval I Summary: Anesthesia Postop Eval I: Assessment Summary Airway patent Yes 01/30/25 11:48 [email or web address] Spontaneous unlabored Yes 01/30/25 11:48 [email or web address] respirations Mental status Awake,Calm 01/30/25 11:48 [email or web address] nausea No 01/30/25 11:48 [email or web address] Vomiting No 01/30/25 11:48 [email or web address] Anesthesia Postop Eval I: Fluid Summary Crystalloid volume administer 1,000 01/30/25 11:48 [email or web address] (ml) Colloids volume administered ( ml) Blood Product volume administered (ml) Total IV fluid infused 1,000 01/30/25 11:48 [email or web address] Anesthesia Postop Eval I: Summary Notes Anesthesia Complication No 01/30/25 11:48 [email or web address] Anesthesia Complication Comment: Post-operative progress note Anesthesia: Postop Eval II Evaluation Mental status: Awake Pain Level: 2 nausea: No Vomiting: No
--- NOTE | 2025-01-30 14:18 | PCM.POSTANE2 ---
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 WELD INSPECTOR.[email or web address] Spontaneous unlabored Yes 01/30/25 11:48 PLATE AND WELD INSPECTOR.[email or web address] respirations Mental status Awake,Calm 01/30/25 11:48 PLATE AND WELD INSPECTOR.[email or web address] nausea No 01/30/25 11:48 PLATE AND WELD INSPECTOR.[email or web address] Vomiting No 01/30/25 11:48 PLATE AND WELD INSPECTOR.[email or web address] Anesthesia Postop Eval I: Fluid Summary Crystalloid volume administer 1,000 01/30/25 11:48 PLATE AND WELD INSPECTOR.[email or web address] (ml) Colloids volume administered ( ml) Blood Product volume administered (ml) Total IV fluid infused 1,000 01/30/25 11:48 PLATE AND WELD INSPECTOR.[email or web address] Anesthesia Postop Eval I: Summary Notes Anesthesia Complication No 01/30/25 11:48 PLATE AND WELD INSPECTOR.[email or web address] Anesthesia Complication Comment: Post-operative progress note Anesthesia: Postop Eval II Evaluation Mental status: Awake Pain Level: 2 nausea: No Vomiting: No
== END 2025-01-30 13:05 | disposition home or self-care (01) ==
LOC: SDC 08:58 → AC 08:58
PROVIDERS: PCP Internal Medicine; Referring Provider Student in an Organized Health Care Education/Training Program; Visit Provider Student in an Organized Health Care Education/Training Program
PROC: (CPT 29870; principal; 2025-01-30 10:25)
DX: S83.241A Other tear of medial meniscus, current injury, right knee, initial encounter (principal); S83.281A Other tear of lateral meniscus, current injury, right knee, initial encounter; M22.41 Chondromalacia patellae, right knee; W19.XXXA Unspecified fall, initial encounter; E78.00 Pure hypercholesterolemia, unspecified; K21.9 Gastro-esophageal reflux disease without esophagitis; Z88.0 Allergy status to penicillin; Z79.899 Other long term (current) drug therapy
CPT/HCPCS: 29880; 01400; 36415; 80048; 85025; 93005; J2405